=== PATIENT | female | born 1935 | race Caucasian/White ===

== ENCOUNTER 2019-11-19 09:11 | Inpatient (IN) | payer MEDICARE, OTHER ==
--- NOTE | 2019-11-19 09:20 | ER Document Report ---
ED General - General Chief Complaint: Urinary Problem Stated Complaint: POSSIBLE UTI Time Seen by Provider: 11/19/19 09:19 Primary Care Provider: CHIDI SIMENTAL MD [Primary Care Provider] - Follow up as needed - HPI Patient complains to provider of: Weakness and fatigue Notes: 83-year-old female presents with increasing weakness fatigue for the last 2 weeks. Patient was just hospitalized last Tuesday for urinary tract infection. Discharged on . Continues to be profoundly weak and tired. This 83-year-old female normally lives by herself able to take care of activities of daily life. This is no longer possible. Denies any focal neurologic deficit. Intact strength. Symptoms have been going on for 1 week. Denies fever nausea vomiting. Patient denies dysuria frequency or hematuria. No other symptoms besides generalized weakness - Related Data Allergies/Adverse Reactions: acetaminophen [From Percocet] Allergy (Verified 02/26/14 09:42) levofloxacin [From Levaquin] Allergy (Verified 02/26/14 09:42) oxycodone HCl [From Percocet] Allergy (Verified 02/26/14 09:42) Past Medical History - Social History Smoking Status: Unknown if Ever Smoked Family History: Reviewed & Not Pertinent - Past Medical History Cardiac Medical History: Reports: Hx Hypercholesterolemia Past Surgical History: Reports: Hx Cardiac Surgery - aortic valve replacement and double bypass, Hx Orthopedic Surgery - rods in low back, rods in left ankle, Review of Systems - Review of Systems Notes: REVIEW OF SYSTEMS: CONSTITUTIONAL: -fevers, -chills EENT: -eye pain, -difficulty swallowing, -nasal congestion CARDIOVASCULAR: -chest pain, -syncope. RESPIRATORY: -cough, -SOB GASTROINTESTINAL: -abdominal pain, -nausea, -vomiting, -diarrhea GENITOURINARY: -dysuria, -hematuria MUSCULOSKELETAL: -back pain, -neck pain SKIN: -rash or skin lesions. HEMATOLOGIC: -easy bruising or bleeding. LYMPHATIC: -swollen, enlarged glands. NEUROLOGICAL: Weakness PSYCHIATRIC: -anxiety, -depression. ALL OTHER SYSTEMS REVIEWED AND NEGATIVE. Physical Exam - Vital signs Vitals: Temp Pulse Resp BP Pulse Ox 98.0 F 59 L 18 200/71 H 100 11/19/19 09:19 11/19/19 09:19 11/19/19 09:19 11/19/19 09:19 11/19/19 09:19 - Notes Notes: PHYSICAL EXAMINATION: GENERAL: Mild distress. HEAD: Atraumatic, normocephalic. EYES: Pupils equal round and reactive to light, extraocular movements intact, sclera anicteric, conjunctiva are normal. ENT: nares patent, oropharynx clear without exudates. Moist mucous membranes. NECK: Normal range of motion, supple without lymphadenopathy LUNGS: Breath sounds clear to auscultation bilaterally and equal. No wheezes rales or rhonchi. HEART: Regular rate and rhythm without murmurs ABDOMEN: Soft, nontender, normoactive bowel sounds. No guarding, no rebound. No masses appreciated. EXTREMITIES: Normal range of motion, no pitting or edema. No cyanosis. NEUROLOGICAL: Cranial nerves grossly intact. Normal speech, normal gait. Normal sensory and motor exams. PSYCH: Normal mood, normal affect. SKIN: Warm, Dry, normal turgor, no rashes or lesions noted. Course - Re-evaluation Re-evalutation: 11/19/19 09:31 83-year-old female presents with generalized weakness and fatigue. No focal findings on exam constitutional: [PRESENT: as per HPI. ABSENT: chills, fever(s), headache(s), weight gain, weight loss] Eyes: [ABSENT: visual disturbances] Ears: [ABSENT: hearing changes] Cardiovascular: [ABSENT: chest pain, dyspnea on exertion, edema, orthropnea, palpitations] Respiratory: [ABSENT: cough, hemoptysis] Gastrointestinal: [ABSENT: abdominal pain, constipation, diarrhea, hematemesis, hematochezia, nausea, vomiting] Genitourinary: [ABSENT: dysuria, hematuria] Musculoskeletal: [ABSENT: joint swelling] Integumentary: [ABSENT: rash, wounds] Neurological: [ABSENT: abnormal gait, abnormal speech, confusion, dizziness, focal weakness, syncope] Psychiatric: [ABSENT: anxiety, depression, homicidal ideation, suicidal ideation] Endocrine: [ABSENT: cold intolerance, heat intolerance, menstrual abnormalities, polydipsia, polyuria] Hematologic/Lymphatic: [ABSENT: easy bleeding, easy bruising, lymphadenopathy] 11/19/19 10:52 Elderly female presents with vague complaints of generalized weakness and f atigue. Patient found out profound elevated blood pressure which is not normal for this patient. Patient systolic approximately 212. Patient's CAT scan head concerning for possible subacute infarct versus. Emergent order for nitroprusside begin to drop blood pressures within normal limits. Patient shows no signs of herniation on her CAT scan. 11/19/19 12:13 We will proceed slowly with fluid resuscitation given patient's profound elevation in proBNP. Will give IV insulin with fluid. No signs of leukocytosis. Mild lactic acidosis. Patient will be admitted for close monitoring of possible subacute CVA. Or accelerated hypertension. Patient be given oral lisinopril along with having nitroglycerin ointment placed to try to titrate patient off of the nitroprusside drip. - Vital Signs Vital signs: Temp Pulse Resp BP Pulse Ox 98.0 F 59 L 18 131/50 H 97 11/19/19 09:19 11/19/19 09:19 11/19/19 12:01 11/19/19 12:01 11/19/19 12:01 - Laboratory Result Diagrams: 11/19/19 10:00 11/19/19 10:00 Laboratory results interpreted by me: 11/19/19 11/19/19 11/19/19 10:00 10:00 10:00 RDW 16.0 H Sodium 134.6 L Potassium 5.3 H BUN 25 H Est GFR (MDRD) Non-Af 57 L Glucose 357 H Lactic Acid 3.1 H Direct Bilirubin 0.5 H AST 45 H ALT 39 H NT-Pro-B Natriuret Pep Urine Glucose (UA) Ur Leukocyte Esterase Urine Ascorbic Acid 11/19/19 11/19/19 10:00 11:02 RDW Sodium Potassium BUN Est GFR (MDRD) Non-Af Glucose Lactic Acid Direct Bilirubin AST ALT NT-Pro-B Natriuret Pep 3350 H Urine Glucose (UA) >=500 H Ur Leukocyte Esterase TRACE H Urine Ascorbic Acid 20 H Critical Care Note - Critical Care Note Total time excluding time spent on procedures (mins): 32 Discharge - Discharge Clinical Impression: CVA (cerebral vascular accident) Qualifiers: CVA mechanism: unspecified Qualified Code(s): I63.9 - Cerebral infarction, unspecified Condition: Stable Disposition: ADMITTED INPATIENT Admitting Provider: Carolina (Hospitalist) Unit Admitted: IMCU Referrals: CHIDI SIMENTAL MD [Primary Care Provider] - Follow up as needed
[2019-11-19] MEDS ORDERED: NORMAL SALINE 1000 ML 1,000 ML IV ONE (09:28)
[2019-11-19 10:30] LABS: ABSOLUTE EOSINOPHILS # (AUTO) 0.1 10^3/uL (0.0-0.6); ABSOLUTE LYMPHOCYTES (AUTO) 1.1 10^3/uL (0.5-4.7); ABSOLUTE MONOCYTES (AUTO) 0.7 10^3/uL (0.1-1.4); ABSOLUTE NEUT (AUTO) 4.9 10^3/uL (1.7-8.2); BASOPHILS % (AUTO) 0.6 % (0-2); EOSINOPHILS % (AUTO) 0.8 % (0-6); HEMATOCRIT 45.2 % (36.0-47.0); HEMOGLOBIN 15.5 g/dL (12.0-15.5); LYMPHOCYTES % (AUTO) 16.5 % (13-45); MEAN CORPUSCULAR HEMOGLOBIN 30.2 pg (27.0-33.4); MEAN CORPUSCULAR HGB CONC 34.3 g/dL (32.0-36.0); MEAN CORPUSCULAR VOLUME 88 fl (80-97); MONOCYTES % (AUTO) 10.4 % (3-13); PLATELET COUNT 169 10^3/uL (150-450); RED BLOOD COUNT 5.13 10^6/uL (3.72-5.28); SEGMENTED NEUTROPHILS % (AUTO) 71.7 % (42-78); TOTAL CELLS COUNTED % (AUTO) 100 %; WHITE BLOOD COUNT 6.9 10^3/uL (4.0-10.5)
[2019-11-19] MEDS ORDERED: NICARDIPINE HCL RTU, ISO-OS 20 MG/200 ML RTUINJ IV PRN (10:49)
[2019-11-19] MEDS ORDERED: DEXTROSE 5%-WATER 250 ML with NITROPRUSSIDE SODIUM 50 MG IV PRN ×2 (10:52)
[2019-11-19 10:53] LABS: ALBUMIN 3.6 g/dL (3.5-5.0); ALKALINE PHOSPHATASE 118 U/L (38-126); ANION GAP 10 (5-19); ASPARTATE AMINO TRANSFERASE 45 U/L (14-36); BILIRUBIN,DIRECT 0.5 mg/dL (0.0-0.4); BILIRUBIN,TOTAL 0.7 mg/dL (0.2-1.3); BLOOD UREA NITROGEN 25 mg/dL (7-20); CARBON DIOXIDE 24 mmol/L (22-30); CHLORIDE 101 mmol/L (98-107); GLUCOSE 357 mg/dL (75-110); POTASSIUM 5.3 mmol/L (3.6-5.0)
[2019-11-19] MEDS ORDERED: NITROPRUSSIDE SODIUM 2 ML IV ONE (10:57)
[2019-11-19] MEDS ORDERED: INSULIN REG, HUMAN 100 UNIT/ML 3 ML VIAL (PYX) IV ONE (10:58)
--- NOTE | 2019-11-19 11:02 | RADIOLOGY REPORT (SQ) ---
EXAM DESCRIPTION: CT HEAD WITHOUT COMPLETED DATE/TIME: 11/19/2019 10:38 am REASON FOR STUDY: AMS COMPARISON: None. TECHNIQUE: Axial images acquired through the brain without intravenous contrast. Images reviewed wi th bone, brain and subdural windows. Additional sagittal and coronal reconstructions were generated. Images stored on PACS. All CT scanners at this facility use dose modulation, iterative reconstruction, and/or weight based d osing when appropriate to reduce radiation dose to as low as reasonably achievable (ALARA). [facility]: Dose Right [facility]: CareDose [facility]: Dose Right [facility]: Teradose 4D [facility]: Smart LevelEleven RADIATION DOSE: CT Rad equipment meets quality standard of care and radiation dose reduction techniq ues were employed. CTDIvol: 53.2 mGy. DLP: 991 mGy-cm.mGy. LIMITATIONS: None. FINDINGS: VENTRICLES: Prominent. CEREBRUM: Multifocal areas of hypoattenuation throughout both hemispheres some of which demonstrate l oss of bates-white attenuation. For reference there areas involving the bilateral occipital lobes, le ft paramedian frontal lobe and barrera radiata and left basal ganglia. Additional areas of nonspecifi c periventricular hypoattenuation, likely sequelae of microangiopathic disease. No significant mass or mass effect. No evidence of intracranial hemorrhage. CEREBELLUM: No masses. No hemorrhage. No alteration of density. No evidence for acute infarction. EXTRAAXIAL SPACES: Age-related involutional change. No fluid collections. No masses. ORBITS AND GLOBE: No intra- or extraconal masses. Normal contour of globe without masses. Bilateral cataract surgery. CALVARIUM: No fracture. PARANASAL SINUSES: No fluid or mucosal thickening. SOFT TISSUES: No mass or hematoma. OTHER: No other significant finding. IMPRESSION: 1. Multifocal areas of hypoattenuation involving the bilateral occipital lobes and left paramedian frontal lobe compatible with age indeterminate infarcts. No priors available for compari son. Recommend MRI for more definitive characterization of chronicity. 2. Additional nonspecific white matter changes, likely sequelae of microangiopathic disease and pare nchymal atrophy. EVIDENCE OF ACUTE STROKE: Multifocal areas of hypoattenuation compatible with infarct, age indetermin ate. Findings discussed with At 1045 hours on 11/19/2019. TECHNICAL DOCUMENTATION: JOB ID: [id number] Quality ID # [id number]: Final reports with documentation of one or more dose reduction techniques (e.g., Au tomated exposure control, adjustment of the mA and/or kV according to patient size, use of iterative reconstruction technique) 2010 [employer]- All Rights Reserved Reading location - IP/workstation name: [email or web address]
[2019-11-19 11:04] LABS: TROPONIN I 0.197 ng/mL
[2019-11-19 11:49] LABS: APPEARANCE,URINE CLEAR; BILIRUBIN,URINE NEGATIVE (NEGATIVE); COLOR,URINE YELLOW; GLUCOSE, URINE >=500 mg/dL (NEGATIVE); KETONES,URINE NEGATIVE (NEGATIVE); LEUKOCYTE ESTERASE,URINE TRACE (NEGATIVE); NITRITE,URINE NEGATIVE (NEGATIVE); PROTEIN,URINE NEGATIVE (NEGATIVE); UROBILINOGEN,URINE NEGATIVE mg/dL (<2.0)
[2019-11-19] MEDS ORDERED: LISINOPRIL 10 MG TABLET PO ONE (12:12)
[2019-11-19] MEDS ORDERED: NITROGLYCERIN 2% OINTMENT 1 GM PACKET TP ONE (12:13)
[2019-11-19] MEDS ORDERED: ACETAMINOPHEN 325 MG TABLET PO PRN (13:34)
[2019-11-19] MEDS ORDERED: NORMAL SALINE 1000 ML 1,000 ML IV PRN (13:34)
[2019-11-19] MEDS ORDERED: MAG HYDROX/AL HYDROX/SIMETH SUSP 30 ML UDCUP PO PRN (13:34)
[2019-11-19] MEDS ORDERED: DEXTROSE 50%-WATER 25 GM/50 ML DISP.SYRIN IV PRN ×2 (13:44)
[2019-11-19] MEDS ORDERED: GLUCAGON,HUMAN RECOMB 1 MG INJ IM PRN (13:44)
[2019-11-19] MEDS ORDERED: DEXTROSE 40% GEL 15 GM TUBE PO PRN ×2 (13:44)
[2019-11-19] MEDS ORDERED: HYDRALAZINE HCL INJ/PF 20 MG/1 ML SDV IV PRN (13:47)
--- NOTE | 2019-11-19 14:14 | PDOC H&P ---
History of Present Illness Admission Date/PCP: 11/19/19 13:10 CHIDI SIMENTAL MD Patient complains of: Generalized weakness History of Present Illness: ALL MILTON is a 83 year old female with a history of recent urinary tract infection, aortic valve replacement, diabetes mellitus type 2, who presents to the hospital with complaints of continued generalized weakness as well as fatigue. History obtained from patient's daughter and patient. Patient was r ecently treated for urinary tract infection 1 week ago at [facility] after presenting with weakness and "groggy feeling". At that time, she was noted to also have elevated blood pressure with systolic in the 190s. This is unusual for patient who had no prior history of hypertension. She was discharged home 2 days later and completed treatment with oral antibiotics. Jardiance was stopped due to concern that he may precipitate UTI. She was discharged on lisinopril. She went to see her primary care provider due to persistence of weakness now affecting ambulation and was told to come to the hospital for further evaluation. Patient denies any focal weaknesses, dysphagia or any focal wan rological symptoms and states that she would like to go home to take care of her cat. In the ER, head CT revealed findings concerning for stroke and as such she was referred to hospitalist service for admission. Past Medical History Endocrine Medical History: Reports: Diabetes Mellitus Type 2 Past Surgical History Past Surgical History: Reports: Orthopedic Surgery - rods in low back, rods in left ankle,, Other - Bovine aortic valve replacement Social History Information Source: Patient, Relative Lives with: Family Smoking Status: Unknown if Ever Smoked Frequency of Alcohol Use: None Hx Recreational Drug Use: No - Advance Directive Resuscitation Status: Full Code Family History Family History: Hypertension Parental Family History Reviewed: Yes Children Family History Reviewed: NA Sibling(s) Family History Reviewed.: NA Medication/Allergy Allergies/Adverse Reactions: acetaminophen [From Percocet] Allergy (Verified 02/26/14 09:42) levofloxacin [From Levaquin] Allergy (Verified 02/26/14 09:42) oxaprozin [From Daypro] Allergy (Verified 11/19/19 13:57) oxycodone HCl [From Percocet] Allergy (Verified 02/26/14 09:42) Review of Systems Constitutional: PRESENT: fatigue. ABSENT: chills, fever(s) Eyes: ABSENT: visual disturbances Ears: ABSENT: hearing changes Nose, Mouth, and Throat: ABSENT: headache(s) Cardiovascular: ABSENT: chest pain Respiratory: ABSENT: dyspnea Gastrointestinal: ABSENT: abdominal pain, nausea, vomiting Genitourinary: ABSENT: dysuria Integumentary: ABSENT: diaphoresis Neurological: ABSENT: confusion, focal weakness Psychiatric: ABSENT: anxiety Endocrine: ABSENT: cold intolerance Physical Exam Vital Signs: Temp Pulse Resp BP Pulse Ox 98.0 F 59 L 12 197/65 H 100 11/19/19 09:19 11/19/19 09:19 11/19/19 13:28 11/19/19 13:28 11/19/19 13:28 Intake & Output 11/18/19 11/19/19 11/20/19 06:59 06:59 06:59 Intake Total 1006 Balance 1006 Weight 64.9 kg General appearance: PRESENT: no acute distress, cooperative, hard of hearing Head exam: PRESENT: atraumatic, normocephalic Eye exam: PRESENT: EOMI, PERRLA. ABSENT: scleral icterus Mouth exam: PRESENT: neck supple, tongue midline Neck exam: ABSENT: carotid bruit, JVD Respiratory exam: PRESENT: symmetrical, unlabored, wheezes. ABSENT: accessory muscle use, retraction, tachypnea Cardiovascular exam: PRESENT: +S1, +S2. ABSENT: diastolic murmur, irregular rhythm, systolic murmur, tachycardia GI/Abdominal exam: PRESENT: soft. ABSENT: rebound, rigid, tenderness Extremities exam: ABSENT: calf tenderness, pedal edema Neurological exam: PRESENT: alert, awake, oriented to person, oriented to place, oriented to time, ataxia - Mild ataxia on FNF test of left hand., motor sensory deficit - Mild left upper extremity weakness 4/5. Normal strength in all other extremities.. ABSENT: CN II-XII grossly intact - Right facial droop noted. Negative for dysarthria. Other cranial nerves intact, aphasic Psychiatric exam: ABSENT: agitated, anxious Focused psych exam: ABSENT: pressured speech Skin exam: ABSENT: jaundice Results Laboratory Results: 11/19/19 10:00 11/19/19 10:00 11/19/19 11/19/19 11/19/19 10:00 10:00 10:00 WBC 6.9 RBC 5.13 Hgb 15.5 Hct 45.2 MCV 88 MCH 30.2 MCHC 34.3 RDW 16.0 H Plt Count 169 Seg Neutrophils % 71.7 Sodium 134.6 L Potassium 5.3 H Chloride 101 Carbon Dioxide 24 Anion Gap 10 BUN 25 H Creatinine 0.94 Est GFR ( Amer) > 60 Glucose 357 H Lactic Acid 3.1 H Calcium 9.0 Total Bilirubin 0.7 AST 45 H Alkaline Phosphatase 118 Total Protein 7.0 Albumin 3.6 Urine Color Urine Appearance Urine pH Ur Specific Burns Urine Protein Urine Glucose (UA) Urine Ketones Urine Blood Urine Nitrite Ur Leukocyte Esterase Urine WBC (Auto) Urine RBC (Auto) 11/19/19 11:02 WBC RBC Hgb Hct MCV MCH MCHC RDW Plt Count Seg Neutrophils % Sodium Potassium Chloride Carbon Dioxide Anion Gap BUN Creatinine Est GFR ( Amer) Glucose Lactic Acid Calcium Total Bilirubin AST Alkaline Phosphatase Total Protein Albumin Urine Color YELLOW Urine Appearance CLEAR Urine pH 5.0 Ur Specific Burns 1.020 Urine Protein NEGATIVE Urine Glucose (UA) >=500 H Urine Ketones NEGATIVE Urine Blood NEGATIVE Urine Nitrite NEGATIVE Ur Leukocyte Esterase TRACE H Urine WBC (Auto) 3 Urine RBC (Auto) 2 11/19/19 10:00 Troponin I 0.197 NT-Pro-B Natriuret Pep 3350 H Impressions: Head CT 11/19/19 09:29 IMPRESSION: 1. Multifocal areas of hypoattenuation involving the bilateral occipital lobes and left paramedian frontal lobe compatible with age indeterminate infarcts. No priors available for comparison. Recommend MRI for more definitive characterization of chronicity. 2. Additional nonspecific white matter changes, likely sequelae of microangiopathic disease and parenchymal atrophy. EVIDENCE OF ACUTE STROKE: Multifocal areas of hypoattenuation compatible with infarct, age indeterminate. Findings discussed with At 1045 hours on 11/19/2019. Assessment and Plan - Diagnosis (1) CVA (cerebral vascular accident) Qualifiers: CVA mechanism: unspecified Qualified Code(s): I63.9 - Cerebral infarction, unspecified Is this a current diagnosis for this admission?: Yes Plan: I suspect that the findings of stroke on head CT are likely subacute or chronic and not acute Patient does seem to have right facial droop, left arm weakness We will check MRI-we will need to check ankle x-rays first as patient's daughter suspects that she has screws in 1 of her ankleS Check lipid panel every 4 neurochecks Empirically start aspirin and atorvastatin Carotid ultrasound and echo (2) Type 2 diabetes mellitus with hyperglycemia Qualifiers: Diabetes mellitus long term care social worker insulin use: with long term care social worker use Qualified Code(s): E11.65 - Type 2 diabetes mellitus with hyperglycemia; Z79.4 - long term (current) use of insulin Is this a current diagnosis for this admission?: Yes Plan: Resume patient's home regimen of 70/30 insulin 20 units in a.m. and 10 units in p.m. We will give a dose of NPH 10 units now Sliding scale insulin. Check hemoglobin A1c. (3) Hypertensive urgency Is this a current diagnosis for this admission?: Yes Plan: Recently started on lisinopril but has hyperkalemia today and as such I will hold lisinopril. Instead I will place her on chlorthalidone and amlodipine and IV hydralazine as needed. (4) Weakness Is this a current diagnosis for this admission?: Yes Plan: Physical and Occupational Therapy (5) Lactic acidosis Is this a current diagnosis for this admission?: Yes Plan: Received a fluid bolus. Recheck labs. (6) Wheezing Is this a current diagnosis for this admission?: Yes Plan: Noted to be wheezing today. Denies history of COPD. Will give nebulizers. Outpatient PFTs. (7) Elevated troponin Is this a current diagnosis for this admission?: Yes Plan: EKG showing left bundle branch block. However I do not know if this is a new or an old finding as no prior EKGs for comparison. I will check another troponin level now and if elevated will consult cardiology. At this time, patient denies any symptoms of chest pain or shortness of breath. - Time Time Spent with patient: 35 or more minutes
--- NOTE | 2019-11-19 15:01 | RADIOLOGY REPORT (SQ) ---
EXAM DESCRIPTION: ANKLE BILATERAL AP/LAT COMPLETED DATE/TIME: 11/19/2019 2:08 pm REASON FOR STUDY: needs mri brain. ? hx of screws in ankle COMPARISON: None. NUMBER OF VIEWS: Two views. TECHNIQUE: AP and lateral radiographic images acquired of the right hand left ankle. LIMITATIONS: None. FINDINGS: RIGHT: MINERALIZATION: Decreased. BONES: No acute fracture dislocation. Chronic appearing distal fibular fracture. Degenerative cartagena es about the inferior medial and lateral malleoli. Small superior and plantar calcaneal enthesophyte s. Midfoot osteophytosis. JOINTS: No effusions. SOFT TISSUES: Vascular calcifications. OTHER: No other significant finding. LEFT: MINERALIZATION: Decreased. BONES: No acute fracture or dislocation. Cancellous screw fixation at the distal fibula. Degenerati ve changes at the inferior medial and lateral malleoli. Midfoot degenerative change. Plantar and sumner perior calcaneal enthesophytes. JOINTS: No effusions. SOFT TISSUES: Vascular calcifications. OTHER: No other significant finding. IMPRESSION: 1. No evidence of acute bony abnormality of either ankle. 2. Moderate bilateral degenerative changes and postsurgical/traumatic changes as above. 2 cancellou s screws within the left distal fibula. TECHNICAL DOCUMENTATION: JOB ID: [id number] 2010 [employer]- All Rights Reserved Reading location - IP/workstation name: [email or web address]
[2019-11-19] MEDS ORDERED: AMLODIPINE BESYLATE 10 MG TABLET PO ONE (16:30)
[2019-11-19] MEDS: IPRATROPIUM/ALBUTEROL 0.5-2.5 MG/3 ML AMPUL NEB SCH ×2 (17:13→21:12)
[2019-11-19] MEDS: HUM INSULIN NPH/REG INSULIN HM 100 UNIT/1 ML 3 ML SUBCUT SCH (17:31)
[2019-11-19] MEDS: INSULIN LISPRO 100 UNIT/ML 3 ML VIAL SUBCUT SCH ×2 (17:31→22:06)
[2019-11-19] MEDS: CHLORTHALIDONE 25 MG TABLET PO SCH (17:31)
--- NOTE | 2019-11-19 17:56 | RADIOLOGY REPORT (SQ) ---
EXAM DESCRIPTION: MRI HEAD WITHOUT COMPLETED DATE/TIME: 11/19/2019 3:22 pm REASON FOR STUDY: CVA COMPARISON: 11/19/2019 TECHNIQUE: Multiplanar imaging includes non-contrasted T1, T2, FLAIR, and diffusion with ADC map seq uences. Images stored on PACS. LIMITATIONS: None. FINDINGS: ANATOMY: No anomalies. Normal vascular flow voids. Pituitary fossa normal. CSF SPACES: Normal in size and contour. No hemorrhage. CEREBRUM: Deep periventricular FLAIR/ T2 hyperintensities. Consistent with small vessel disease. Co nfluent abnormal signal throughout the right occipital lobe, to a lesser extent left occipital lobe. See diffusion imaging. No parenchymal hemorrhage or hydrocephalus. POSTERIOR FOSSA: No signal alteration. No hemorrhage. No edema, masses or mass effect. Internal shanda tory canals, cerebello-pontine angles, mastoids normal. DIFFUSION IMAGING: Mildly abnormal diffusion. Subcortical areas of restricted diffusion in the right occipital lobe consistent with recent CVA. This is punctate, discontinuous and without large conflu ent territorial infarct otherwise noted. ORBITS: No masses. Globes normal. PARANASAL SINUSES: No fluid levels. Mucosa normal. OTHER: No other significant finding. IMPRESSION: 1. Recent right occipital lobe infarcts. See description above. 2. Otherwise, small vessel disease and atrophy. Call report tasked to the [facility] CORE team at the time of interpretation. EVIDENCE OF ACUTE STROKE: NO. TECHNICAL DOCUMENTATION: JOB ID: [id number] 2010 [employer]- All Rights Reserved Reading location - IP/workstation name: [email or web address]
[2019-11-19] MEDS ORDERED: AMLODIPINE BESYLATE 5 MG TABLET PO SCH (18:00)
[2019-11-19] MEDS ORDERED: GLIMEPIRIDE 4 MG TABLET PO ONE (20:30)
[2019-11-19] MEDS ORDERED: CARVEDILOL 6.25 MG TABLET PO SCH (22:00)
[2019-11-19] MEDS: ATORVASTATIN CALCIUM 40 MG TABLET PO SCH (22:06)
[2019-11-19] MEDS: DONEPEZIL HCL 5 MG TABLET PO SCH (22:06)
--- NOTE | 2019-11-19 23:37 | XCELERA REPORT ---
[address] [address] Transthoracic Echocardiogram Report Name: ALL MILTON Age: 83 yrs Gender: Female : 1935 Patient Status: Inpatient Patient Location: [facility]^A Study Date: 11/19/2019 08:05 PM Height: 62 in Weight: 143 lb BSA: 1.7 m2 Procedure: A complete two-dimensional transthoracic echocardiogram was performed (2D, M-mode, spectral and color flow Doppler). The study was technically adequate with some images being suboptimal in quality. Reason For Study: stroke work up Ordering Physician: JEFF SHEIKH Performed By: Rosalina Martinez Interpretation Summary Left ventricular systolic function is low normal. The left ventricle is grossly normal size. There is moderate concentric left ventricular hypertrophy. The left ventricular cavity is small. Doppler measurements suggest pseudonormalized left ventricular relaxation, which is associated with grade II/IV or mild to moderate diastolic dysfunction Regional wall motion abnormalities cannot be excluded due to limited visualization. The right ventricular systolic function is normal. The left atrium is mildly dilated. The right atrium is normal. There is a trace to mild amount of mitral regurgitation There is mild mitral stenosis MV has aapperance of previous ring repair The aortic valve is moderately calcified There is mild aortic stenosis There is a peak gradient of 15-20 mm of Hg. There is a trace amount of aortic regurgitation There is a trace or physiologic amount of tricuspid regurgitation Tricuspid regurgitation jet envelope not well defined to measure RV systolic pressure accurately. Minimal pericardial effusion. Consider NIKOLAS if clinically indicated. MMode/2D Measurements & Calculations RVDd: 3.0 cm LVIDd: 4.2 cm FS: 39.8 % Ao root diam: 2.5 cm IVSd: 1.4 cm LVIDs: 2.6 cm EDV(Teich): 80.7 ml Ao root area: 4.9 cm2 LVPWd: 1.3 cm ESV(Teich): 23.6 ml LA dimension: 4.2 cm EF(Teich): 70.8 % LVOT diam: 1.8 cm LVOT area: 2.5 cm2 Doppler Measurements & Calculations MV E max redd: MV P1/2t max redd: Ao V2 max: LV V1 max P.2 cm/sec 117.1 cm/sec 203.0 cm/sec 3.4 mmHg MV A max redd: MV P1/2t: 107.7 msec Ao max PG: LV V1 mean P.0 cm/sec MVA(P1/2t): 2.0 cm2 16.5 mmHg 1.3 mmHg MV E/A: 0.71 MV dec slope: Ao V2 mean: LV V1 max: 119.4 cm/sec 92.1 cm/sec 318.4 cm/sec2 Ao mean PG: LV V1 mean: MV dec time: 0.39 sec 7.6 mmHg 51.3 cm/sec Ao V2 VTI: 39.9 cm LV V1 VTI: RONDA(I,D): 1.3 cm2 20.0 cm RONDA(V,D): 1.2 cm2 SV(LVOT): 50.9 ml PA V2 max: MV P1/2t-pr_phl: 113.5 cm/sec 107.7 msec PA max P.2 mmHg Left Ventricle The left ventricle is grossly normal size. There is moderate concentric left ventricular hypertrophy. The left ventricular cavity is small. Left ventricular systolic function is low normal. Doppler measurements suggest pseudonormalized left ventricular relaxation, which is associated with grade II/IV or mild to moderate diastolic dysfunction. Regional wall motion abnormalities cannot be excluded due to limited visualization. Right Ventricle The right ventricle is grossly normal size. There is normal right ventricular wall thickness. The right ventricular systolic function is normal. Atria The right atrium is normal. The left atrium is mildly dilated. Interarterial septum not well visualized and not well dopplered. Cannot comment on ASD/PFO presence. Mitral Valve MV has aapperance of previous ring repair. There is mild mitral stenosis. There is a trace to mild amount of mitral regurgitation. Aortic Valve The aortic valve is moderately calcified. The aortic valve is not well visualized secondary to technical limitations. There is mild aortic stenosis. There is a peak gradient of 15-20 mm of Hg. There is a trace amount of aortic regurgitation. Tricuspid Valve The tricuspid valve is not well visualized secondary to technical limitations. There is no tricuspid stenosis. There is a trace or physiologic amount of tricuspid regurgitation. Tricuspid regurgitation jet envelope not well defined to measure RV systolic pressure accurately. Pulmonic Valve The pulmonic valve is not well visualized. Great Vessels The aortic root is not well visualized but is probably normal size. The inferior vena cava was not well visualized. Effusions Minimal pericardial effusion. Incidental Findings Consider NIKOLAS if clinically indicated. : JEFF SHEIKH Shyamal
[2019-11-20] MEDS: IPRATROPIUM/ALBUTEROL 0.5-2.5 MG/3 ML AMPUL NEB SCH ×4 (02:15→20:17)
[2019-11-20 05:32] LABS: ANION GAP 6 (5-19); BLOOD UREA NITROGEN 15 mg/dL (7-20); CALCIUM 8.6 mg/dL (8.4-10.2); CARBON DIOXIDE 25 mmol/L (22-30); CHLORIDE 102 mmol/L (98-107); CREATINE KINASE 34 U/L (30-135); GLUCOSE 155 mg/dL (75-110); PHOSPHORUS 2.5 mg/dL (2.5-4.5); POTASSIUM 4.6 mmol/L (3.6-5.0); TRIGLYCERIDES 184 mg/dL (<150)
[2019-11-20 05:43] LABS: DIRECT LDL 78 mg/dL (<100)
[2019-11-20 05:54] LABS: VLDL CHOLESTEROL 36.8 mg/dL (10-31)
[2019-11-20] MEDS: INSULIN LISPRO 100 UNIT/ML 3 ML VIAL SUBCUT SCH ×4 (09:13→23:09)
[2019-11-20] MEDS: HUM INSULIN NPH/REG INSULIN HM 100 UNIT/1 ML 3 ML SUBCUT SCH ×2 (09:13→16:51)
[2019-11-20] MEDS: GLIMEPIRIDE 4 MG TABLET PO SCH (09:13)
[2019-11-20] MEDS: ENOXAPARIN SODIUM INJ 40 MG/0.4 ML DISP.SYRIN SUBCUT SCH (09:14)
[2019-11-20] MEDS: ASPIRIN 81 MG TABLET, ENT COATED PO SCH (09:14)
[2019-11-20] MEDS: CHLORTHALIDONE 25 MG TABLET PO SCH (09:14)
[2019-11-20] MEDS: AMLODIPINE BESYLATE 10 MG TABLET PO SCH (09:14)
--- NOTE | 2019-11-20 09:51 | RADIOLOGY REPORT (SQ) ---
EXAM DESCRIPTION: CAROTID DOPPLER COMPLETED DATE/TIME: 11/19/2019 9:29 pm REASON FOR STUDY: CVA COMPARISON: CT brain 11/19/2019 MRI brain 11/19/2019 TECHNIQUE: Grayscale ultrasound, Doppler velocity and spectra, and color Doppler images acquired of the extra-cranial carotid and vertebral arteries. Images stored on PACS. LIMITATIONS: None. FINDINGS: RIGHT CAROTID CCA Velocities: Within normal limits. Peak systolic velocity 0.9 m/sec ICA Velocities Peak systolic 1.1 m/s. End diastolic 0.18 m/s. Proximal ICA/CCA peak systolic ratio 1.1. Spectra normal. No significant plaque. LEFT CAROTID CCA Velocities: Within normal limits. Peak systolic velocity 0.9 m/sec ICA Velocities Peak systolic 1.4 m/s. End diastolic 0.18 m/s. Proximal ICA/CCA peak systolic ratio 1.5. Dense calcific plaque is present at the left carotid bifurcation shadowing the origin of the left ICA . Immediately distal to the shadowing plaque, velocities suggest 50 to 69% diameter narrowing based on systolic velocity 1.4 m/sec. VERTEBRAL ARTERIES: Antegrade flow. Normal waveforms. SUBCLAVIAN ARTERIES: Not evaluated OTHER: No other significant finding. IMPRESSION: No flow significant stenosis right carotid bifurcation. 50 to 69% diameter narrowing left proximal ICA COMMENT: Quality ID #[id number]: Velocity criteria are extrapolated from the diameter data as defined by t he Society of Radiologists in Ultrasound Consensus Conference. Radiology 2003: 229; 340-346. TECHNICAL DOCUMENTATION: JOB ID: [id number] 2010 [employer]- All Rights Reserved Reading location - IP/workstation name: [email or web address]
[2019-11-20] MEDS ORDERED: AMLODIPINE BESYLATE 5 MG TABLET PO SCH ×2 (10:00→18:00)
--- NOTE | 2019-11-20 11:38 | EKG REPORT ---
SEVERITY:- ABNORMAL ECG - SINUS RHYTHM PROBABLE LEFT ATRIAL ABNORMALITY LEFT BUNDLE BRANCH BLOCK : Confirmed by: Dwight Liang 20-Nov-2019 11:37:18
--- NOTE | 2019-11-20 12:34 | PDOC PROGRESS REPORT ---
Subjective Progress Note for:: 11/20/19 Subjective:: Patient feels well today. Had some coughing this morning and some nausea but was later able to tolerate food. Discussed results of MRI with patient and her daughter. Daughter would like for patient to go to rehabilitation at SNF. Reason For Visit: CVA,WEAKNESS Physical Exam Vital Signs: Temp Pulse Resp BP Pulse Ox 98.1 F 60 18 167/51 H 99 11/20/19 11:02 11/20/19 11:02 11/20/19 11:02 11/20/19 11:02 11/20/19 11:02 Intake & Output 11/19/19 11/20/19 11/21/19 06:59 06:59 06:59 Intake Total 1221 Output Total 200 Balance 1021 Weight 69.7 kg General appearance: PRESENT: no acute distress, cooperative Neck exam: ABSENT: JVD Respiratory exam: PRESENT: clear to auscultation livier, unlabored. ABSENT: tachypnea, wheezes Cardiovascular exam: PRESENT: RRR, +S1, +S2. ABSENT: tachycardia GI/Abdominal exam: PRESENT: soft. ABSENT: rebound, rigid, tenderness Neurological exam: PRESENT: alert, awake, oriented to person, oriented to place, oriented to time Results Laboratory Results: 11/19/19 10:00 11/20/19 04:43 11/19/19 11/20/19 13:27 04:43 Sodium 132.5 L Potassium 4.6 Chloride 102 Carbon Dioxide 25 Anion Gap 6 BUN 15 Creatinine 0.88 Est GFR ( Amer) > 60 Glucose 155 H Lactic Acid 2.1 Calcium 8.6 Phosphorus 2.5 Magnesium 2.0 Triglycerides 184 H Cholesterol 135.10 LDL Cholesterol Direct 78 VLDL Cholesterol 36.8 H HDL Cholesterol 32 L 11/19/19 11/19/19 11/20/19 10:00 16:00 04:43 Creatine Kinase 34 Troponin I 0.197 0.164 NT-Pro-B Natriuret Pep 3350 H Impressions: Ankle X-Ray 11/19/19 00:00 IMPRESSION: 1. No evidence of acute bony abnormality of either ankle. 2. Moderate bilateral degenerative changes and postsurgical/traumatic changes as above. 2 cancellous screws within the left distal fibula. Carotid Doppler Study 11/19/19 00:00 IMPRESSION: No flow significant stenosis right carotid bifurcation. 50 to 69% diameter narrowing left proximal ICA Head MRI 11/19/19 00:00 IMPRESSION: 1. Recent right occipital lobe infarcts. See description above. 2. Otherwise, small vessel disease and atrophy. Call report tasked to the [facility] team at the time of interpretation. EVIDENCE OF ACUTE STROKE: NO. Head CT 11/19/19 09:29 IMPRESSION: 1. Multifocal areas of hypoattenuation involving the bilateral occipital lobes and left paramedian frontal lobe compatible with age indeterminate infarcts. No priors available for comparison. Recommend MRI for more definitive characterization of chronicity. 2. Additional nonspecific white matter changes, likely sequelae of microangiopathic disease and parenchymal atrophy. EVIDENCE OF ACUTE STROKE: Multifocal areas of hypoattenuation compatible with infarct, age indeterminate. Findings discussed with At 1045 hours on 11/19/2019. Assessment and Plan - Diagnosis (1) CVA (cerebral vascular accident) Qualifiers: CVA mechanism: unspecified Qualified Code(s): I63.9 - Cerebral infarction, unspecified Is this a current diagnosis for this admission?: Yes Plan: Subacute CVA confirmed on MRI involving right occipital lobe Patient does seem to have right facial droop, left arm weakness Echo shows no cardioembolic source though it shows mild left atrial dilation. Telemetry review shows no evidence of A. fib Carotid ultrasound normal right carotid but 50 to 69% narrowing of the left which does not qualify for intervention Physical therapy, plan for SNF for rehab. Aspirin, statin (2) Type 2 diabetes mellitus with hyperglycemia Qualifiers: Diabetes mellitus alf insulin use: with superintendent terminal use Qualified Code(s): E11.65 - Type 2 diabetes mellitus with hyperglycemia; Z79.4 - vermin exterminator (current) use of insulin Is this a current diagnosis for this admission?: Yes Plan: Continue patient's home regimen of 70/30 insulin 20 units in a.m. and 10 units in p.m. Hemoglobin A1c of 9. For patient's age adequate goal is 8.5 or less Sliding scale insulin. Resume glimepiride. Also restart Januvia which patient used to take before. (3) Hypertensive urgency Is this a current diagnosis for this admission?: Yes Plan: Amlodipine and chlorthalidone for blood pressure control. We will hold off on lisinopril due to hyperkalemia on presentation. (4) Weakness Is this a current diagnosis for this admission?: Yes (5) Lactic acidosis Is this a current diagnosis for this admission?: Yes Plan: Resolved (6) Wheezing Is this a current diagnosis for this admission?: Yes Plan: Noted to be wheezing on admission but resolved now. Denies history of COPD. Continue nebulizers. Outpatient PFTs. (7) Elevated troponin Is this a current diagnosis for this admission?: Yes Plan: EKG showing left bundle branch block which is likely chronic old finding and troponin trend was flat. No acs evident. - Time Time Spent with patient: 15-24 minutes
[2019-11-20] MEDS ORDERED: SITAGLIPTIN PHOSPHATE 25 MG TABLET PO ONE (13:00)
[2019-11-20] MEDS ORDERED: INSULIN NPH (ISOPHANE), HUMAN 100 UNIT/ML 3 ML SUBCUT ONE (14:30)
[2019-11-20] MEDS: DONEPEZIL HCL 5 MG TABLET PO SCH (23:11)
[2019-11-20] MEDS: ATORVASTATIN CALCIUM 40 MG TABLET PO SCH (23:11)
[2019-11-21] MEDS: IPRATROPIUM/ALBUTEROL 0.5-2.5 MG/3 ML AMPUL NEB SCH ×4 (02:17→20:30)
[2019-11-21] MEDS: SITAGLIPTIN PHOSPHATE 25 MG TABLET PO SCH (09:16)
[2019-11-21] MEDS: INSULIN LISPRO 100 UNIT/ML 3 ML VIAL SUBCUT SCH ×4 (09:16→21:17)
[2019-11-21] MEDS: ASPIRIN 81 MG TABLET, ENT COATED PO SCH (09:16)
[2019-11-21] MEDS: AMLODIPINE BESYLATE 10 MG TABLET PO SCH (09:16)
[2019-11-21] MEDS: ENOXAPARIN SODIUM INJ 40 MG/0.4 ML DISP.SYRIN SUBCUT SCH (09:17)
[2019-11-21] MEDS: GLIMEPIRIDE 4 MG TABLET PO SCH (09:17)
[2019-11-21] MEDS: HUM INSULIN NPH/REG INSULIN HM 100 UNIT/1 ML 3 ML SUBCUT SCH ×2 (09:17→17:10)
[2019-11-21] MEDS: CHLORTHALIDONE 25 MG TABLET PO SCH (09:18)
--- NOTE | 2019-11-21 11:39 | PDOC PROGRESS REPORT ---
Subjective Progress Note for:: 11/21/19 Subjective:: Patient feels well today. Willing to go to rehabilitation. Has no complaints at this time but still having some cough. Reason For Visit: CVA,WEAKNESS Physical Exam Vital Signs: Temp Pulse Resp BP Pulse Ox 98.2 F 71 16 170/63 H 95 11/21/19 07:42 11/21/19 09:14 11/21/19 09:14 11/21/19 07:42 11/21/19 09:14 Intake & Output 11/20/19 11/21/19 11/22/19 06:59 06:59 06:59 Intake Total 1221 380 Output Total 200 525 Balance 1021 -145 Weight 69.7 kg 69.4 kg General appearance: PRESENT: no acute distress, cooperative Neck exam: ABSENT: JVD Respiratory exam: PRESENT: clear to auscultation livier, unlabored. ABSENT: tachypnea, wheezes Cardiovascular exam: PRESENT: RRR, +S1, +S2. ABSENT: tachycardia GI/Abdominal exam: PRESENT: soft. ABSENT: rebound, rigid, tenderness Neurological exam: PRESENT: alert, awake Results Laboratory Results: 11/19/19 10:00 11/20/19 04:43 11/19/19 11/19/19 11/20/19 10:00 16:00 04:43 Creatine Kinase 34 Troponin I 0.197 0.164 NT-Pro-B Natriuret Pep 3350 H Impressions: Ankle X-Ray 11/19/19 00:00 IMPRESSION: 1. No evidence of acute bony abnormality of either ankle. 2. Moderate bilateral degenerative changes and postsurgical/traumatic changes as above. 2 cancellous screws within the left distal fibula. Carotid Doppler Study 11/19/19 00:00 IMPRESSION: No flow significant stenosis right carotid bifurcation. 50 to 69% diameter narrowing left proximal ICA Head MRI 11/19/19 00:00 IMPRESSION: 1. Recent right occipital lobe infarcts. See description above. 2. Otherwise, small vessel disease and atrophy. Call report tasked to the [facility] team at the time of interpretation. EVIDENCE OF ACUTE STROKE: NO. Head CT 11/19/19 09:29 IMPRESSION: 1. Multifocal areas of hypoattenuation involving the bilateral occipital lobes and left paramedian frontal lobe compatible with age indeterminate infarcts. No priors available for comparison. Recommend MRI for more definitive characterization of chronicity. 2. Additional nonspecific white matter changes, likely sequelae of microangiopathic disease and parenchymal atrophy. EVIDENCE OF ACUTE STROKE: Multifocal areas of hypoattenuation compatible with infarct, age indeterminate. Findings discussed with At 1045 hours on 11/19/2019. Assessment and Plan - Diagnosis (1) CVA (cerebral vascular accident) Qualifiers: CVA mechanism: unspecified Qualified Code(s): I63.9 - Cerebral infarction, unspecified Is this a current diagnosis for this admission?: Yes Plan: Subacute CVA confirmed on MRI involving right occipital lobe Patient does seem to have right facial droop, left arm weakness Echo shows no cardioembolic source though it shows mild left atrial dilation. Telemetry review shows no evidence of A. fib Carotid ultrasound normal right carotid but 50 to 69% narrowing of the left which does not qualify for intervention Physical therapy, plan for SNF for rehab. Aspirin, statin (2) Type 2 diabetes mellitus with hyperglycemia Qualifiers: Diabetes mellitus fdc insulin use: with medical terminologist use Qualified Code(s): E11.65 - Type 2 diabetes mellitus with hyperglycemia; Z79.4 - assisted (current) use of insulin Is this a current diagnosis for this admission?: Yes Plan: Continue patient's home regimen of 70/30 insulin 20 units in a.m. and 10 units in p.m. Hemoglobin A1c of 9. For patient's age adequate goal is 8.5 or less Sliding scale insulin. Continue glimepiride and Januvia. Adequate blood sugar control today. (3) Hypertensive urgency Is this a current diagnosis for this admission?: Yes Plan: Hypertensive urgency has resolved but blood pressure still poorly controlled. Continue patient's Coreg. Continue amlodipine and chlorthalidone which was started during this hospitalization Add small dose of hydralazine 10 mg every 8 hours. (4) Weakness Is this a current diagnosis for this admission?: Yes Plan: Physical and Occupational Therapy (5) Lactic acidosis Is this a current diagnosis for this admission?: Yes (6) Wheezing Is this a current diagnosis for this admission?: Yes Plan: Noted to be wheezing on admission but resolved now. Possibly secondary to reactive bronchospasms from acute bronchitis. Denies history of COPD. Continue nebulizers and supportive care. Can consider outpatient PFTs. (7) Elevated troponin Is this a current diagnosis for this admission?: Yes Plan: EKG showing left bundle branch block which is likely chronic old finding and t roponin trend was flat. No acs evident. - Time Time Spent with patient: Less than 15 minutes
[2019-11-21] MEDS: HYDRALAZINE HCL 10 MG TABLET PO SCH ×2 (16:39→21:17)
[2019-11-21] MEDS ORDERED: ISOSORBIDE MONONITRATE 30 MG TAB.ER.24H PO SCH (18:00)
[2019-11-21 19:09] VITALS: BP 152/54
[2019-11-21] MEDS: DONEPEZIL HCL 5 MG TABLET PO SCH (21:17)
[2019-11-21] MEDS: ATORVASTATIN CALCIUM 40 MG TABLET PO SCH (21:17)
[2019-11-22] MEDS: IPRATROPIUM/ALBUTEROL 0.5-2.5 MG/3 ML AMPUL NEB SCH ×3 (02:21→14:53)
[2019-11-22] MEDS: HYDRALAZINE HCL 10 MG TABLET PO SCH (05:22)
[2019-11-22] MEDS: GLIMEPIRIDE 4 MG TABLET PO SCH (08:15)
[2019-11-22] MEDS: HUM INSULIN NPH/REG INSULIN HM 100 UNIT/1 ML 3 ML SUBCUT SCH (08:15)
[2019-11-22] MEDS: INSULIN LISPRO 100 UNIT/ML 3 ML VIAL SUBCUT SCH ×2 (08:16→12:11)
[2019-11-22] MEDS: AMLODIPINE BESYLATE 10 MG TABLET PO SCH (09:09)
[2019-11-22] MEDS: CHLORTHALIDONE 25 MG TABLET PO SCH (09:09)
[2019-11-22] MEDS: SITAGLIPTIN PHOSPHATE 25 MG TABLET PO SCH (09:09)
[2019-11-22] MEDS: ASPIRIN 81 MG TABLET, ENT COATED PO SCH (09:09)
[2019-11-22] MEDS: ENOXAPARIN SODIUM INJ 40 MG/0.4 ML DISP.SYRIN SUBCUT SCH (09:10)
--- NOTE | 2019-11-22 12:00 | PDOC TRANSFER SUMMARY ---
Impression - Admit/DC Date/PCP Admission Date/Primary Care Provider: 11/19/19 13:10 CHIDI SIMENTAL MD Discharge Date: 11/22/19 - Discharge Diagnosis (1) CVA (cerebral vascular accident) Is this a current diagnosis for this admission?: Yes (2) Type 2 diabetes mellitus with hyperglycemia Is this a current diagnosis for this admission?: Yes (3) Hypertensive urgency Is this a current diagnosis for this admission?: Yes (4) Weakness Is this a current diagnosis for this admission?: Yes (5) Lactic acidosis Is this a current diagnosis for this admission?: Yes (6) Wheezing Is this a current diagnosis for this admission?: Yes (7) Elevated troponin Is this a current diagnosis for this admission?: Yes - Additional Information Resuscitation Status: Full Code Referrals: CHIDI SIMENTAL MD [Primary Care Provider] - Follow up as needed Home Medications: Carvedilol [Coreg 6.25 mg Tablet] 6.25 mg PO Q12 11/19/19 Donepezil HCl 10 mg PO QHS 11/19/19 Empagliflozin [Jardiance] 10 mg PO DAILY 11/19/19 Glimepiride [Amaryl 4 mg Tablet] 4 mg PO QAM 11/19/19 Insulin Aspart Prot/Insuln Asp [Novolog Mix 70-30 Flexpen] 10 - 15 units SUBCUT WSUPPER 11/19/19 Insulin Aspart Prot/Insuln Asp [Novolog Mix 70-30 Flexpen] 20 units SUBCUT WBRKFST 11/19/19 Amlodipine Besylate [Norvasc 10 mg Tablet] 10 mg PO DAILY tablet 11/22/19 Aspirin [Ecotrin 81 mg EC Tablet] 81 mg PO DAILY tabec 11/22/19 Atorvastatin Calcium [Lipitor 40 mg Tablet] 40 mg PO QHS tablet 11/22/19 Chlorthalidone [Hygroton 25 mg Tablet] 25 mg PO DAILY tablet 11/22/19 Sitagliptin Phosphate [Januvia 25 mg Tablet] 25 mg PO DAILY tablet 11/22/19 History of Present Illiness History of Present Illness: ALL MILTON is a 83 year old female with a history of recent urinary tract infection, aortic valve replacement, diabetes mellitus type 2, who presents to the hospital with complaints of continued generalized weakness as well as fatigue. History obtained from patient's daughter and patient. Patient was recently treated for urinary tract infection 1 week ago at [facility] after presenting with weakness and "groggy feeling". At that time, she was noted to also have elevated blood pressure with systolic in the 190s. This is unusual for patient who had no prior history of hypertension. She was discharged home 2 days later and completed treatment with oral antibiotics. Jardiance was stopped due to concern that he may precipitate UTI. She was discharged on lisinopril. She went to see her primary care provider due to persistence of weakness now affecting ambulation and was told to come to the hospital for further evaluation. Patient denies any focal weaknesses, dysphagia or any focal neurological symptoms and states that she would like to go home to take care of her cat. In the ER, head CT revealed findings concerning for stroke and as such she was referred to hospitalist service for admission. Hospital Course Hospital Course: (1) CVA (cerebral vascular accident) Subacute CVA confirmed on MRI involving right occipital lobe Patient does seem to have right facial droop, left arm weakness Echo shows no cardioembolic source though it shows mild left atrial dilation. Telemetry review shows no evidence of A. fib Carotid ultrasound normal right carotid but 50 to 69% narrowing of the left which does not qualify for intervention Physical therapy, plan for SNF for rehab. Aspirin, statin (2) Type 2 diabetes mellitus with hyperglycemia Continue patient's home regimen of 70/30 insulin 20 units in a.m. and 10 units in p.m. Hemoglobin A1c of 9. For patient's age adequate goal is 8.5 or less Sliding scale insulin. Continue glimepiride and Januvia. Adequate blood sugar control today. (3) Hypertensive urgency Hypertensive urgency has resolved but blood pressure still mildly elevated. Continue patient's Coreg. Continue amlodipine and chlorthalidone which was started during this hospitalization -we will allow some days for this new regimen to kick into full effect. If BP stays elevated, can add small dose of hydralazine 10 mg every 8 hours. Goal bp below 150/90. (4) Weakness Physical and Occupational Therapy (5) Lactic acidosis - mild, resolved (6) Wheezing Is this a current diagnosis for this admission?: Yes Plan: Noted to be wheezing on admission but resolved after receiving 1 day of bronchodilator treatments and has remained resolved. Possibly secondary to reactive bronchospasms from acute bronchitis. Denies history of COPD. Continue nebulizers if needed and supportive care for cough. Can consider outpatient PFTs. (7) Elevated troponin Is this a current diagnosis for this admission?: Yes Plan: EKG showing left bundle branch block which is likely chronic old finding and troponin trend was flat. No evidence of ACS. Physical Exam Vital Signs: Temp Pulse Resp BP Pulse Ox 98.8 F 73 16 152/54 H 98 11/21/19 15:51 11/22/19 11:00 11/22/19 11:00 11/21/19 15:51 11/22/19 11:00 Intake & Output 11/21/19 11/22/19 11/23/19 06:59 06:59 06:59 Intake Total 380 820 Output Total 525 0 Balance -145 820 Weight 69.4 kg 69.4 kg General appearance: PRESENT: no acute distress, cooperative Neck exam: ABSENT: JVD Respiratory exam: PRESENT: clear to auscultation livier Cardiovascular exam: PRESENT: +S1, +S2 Neurological exam: PRESENT: alert, awake, oriented to person, oriented to place, oriented to time, CN II-XII grossly intact - Facial droop noted otherwise rest of cranial nerves intact, motor sensory deficit - Mild left arm weakness Results Laboratory Results: WBC 6.9 10^3/uL (4.0-10.5) 11/19/19 10:00 RBC 5.13 10^6/uL (3.72-5.28) 11/19/19 10:00 Hgb 15.5 g/dL (12.0-15.5) 11/19/19 10:00 Hct 45.2 % (36.0-47.0) 11/19/19 10:00 MCV 88 fl (80-97) 11/19/19 10:00 MCH 30.2 pg (27.0-33.4) 11/19/19 10:00 MCHC 34.3 g/dL (32.0-36.0) 11/19/19 10:00 RDW 16.0 % (11.5-14.0) H 11/19/19 10:00 Plt Count 169 10^3/uL (150-450) 11/19/19 10:00 Lymph % (Auto) 16.5 % (13-45) 11/19/19 10:00 Kinney % (Auto) 10.4 % (3-13) 11/19/19 10:00 Eos % (Auto) 0.8 % (0-6) 11/19/19 10:00 Baso % (Auto) 0.6 % (0-2) 11/19/19 10:00 Absolute Neuts (auto) 4.9 10^3/uL (1.7-8.2) 11/19/19 10:00 Absolute Lymphs (auto) 1.1 10^3/uL (0.5-4.7) 11/19/19 10:00 Absolute Monos (auto) 0.7 10^3/uL (0.1-1.4) 11/19/19 10:00 Absolute Eos (auto) 0.1 10^3/uL (0.0-0.6) 11/19/19 10:00 Absolute Basos (auto) 0.0 10^3/uL (0.0-0.2) 11/19/19 10:00 Seg Neutrophils % 71.7 % (42-78) 11/19/19 10:00 Sodium 132.5 mmol/L (137-145) L 11/20/19 04:43 Potassium 4.6 mmol/L (3.6-5.0) 11/20/19 04:43 Chloride 102 mmol/L (98-107) 11/20/19 04:43 Carbon Dioxide 25 mmol/L (22-30) 11/20/19 04:43 Anion Gap 6 (5-19) 11/20/19 04:43 BUN 15 mg/dL (7-20) 11/20/19 04:43 Creatinine 0.88 mg/dL (0.52-1.25) 11/20/19 04:43 Est GFR ( Amer) > 60 (>60) 11/20/19 04:43 Est GFR (MDRD) Non-Af > 60 (>60) 11/20/19 04:43 Glucose 155 mg/dL (75-110) H 11/20/19 04:43 POC Glucose 199 mg/dL (70-110) H 11/22/19 08:18 Hemoglobin A1c % 9.0 % (4.7-6.0) H 11/20/19 04:43 Lactic Acid 2.1 mmol/L (0.7-2.1) 11/19/19 13:27 Calcium 8.6 mg/dL (8.4-10.2) 11/20/19 04:43 Phosphorus 2.5 mg/dL (2.5-4.5) 11/20/19 04:43 Magnesium 2.0 mg/dL (1.6-2.3) 11/20/19 04:43 Total Bilirubin 0.7 mg/dL (0.2-1.3) 11/19/19 10:00 Direct Bilirubin 0.5 mg/dL (0.0-0.4) H 11/19/19 10:00 Neonat Total Bilirubin Not Reportable 11/19/19 10:00 Neonat Direct Bilirubin Not Reportable 11/19/19 10:00 Neonat Indirect Bili Not Reportable 11/19/19 10:00 AST 45 U/L (14-36) H 11/19/19 10:00 ALT 39 U/L (<35) H 11/19/19 10:00 Alkaline Phosphatase 118 U/L (38-126) 11/19/19 10:00 Creatine Kinase 34 U/L (30-135) 11/20/19 04:43 Troponin I 0.164 ng/mL 11/19/19 16:00 NT-Pro-B Natriuret Pep 3350 pg/mL (<450) H 11/19/19 10:00 Total Protein 7.0 g/dL (6.3-8.2) 11/19/19 10:00 Albumin 3.6 g/dL (3.5-5.0) 11/19/19 10:00 Triglycerides 184 mg/dL (<150) H 11/20/19 04:43 Cholesterol 135.10 mg/dL (0-200) 11/20/19 04:43 LDL Cholesterol Direct 78 mg/dL (<100) 11/20/19 04:43 VLDL Cholesterol 36.8 mg/dL (10-31) H 11/20/19 04:43 HDL Cholesterol 32 mg/dL (>40) L 11/20/19 04:43 Urine Color YELLOW 11/19/19 11:02 Urine Appearance CLEAR 11/19/19 11:02 Urine pH 5.0 (5.0-9.0) 11/19/19 11:02 Ur Specific [place] 1.020 11/19/19 11:02 Urine Protein NEGATIVE mg/dL (NEGATIVE) 11/19/19 11:02 Urine Glucose (UA) >=500 mg/dL (NEGATIVE) H 11/19/19 11:02 Urine Ketones NEGATIVE mg/dL (NEGATIVE) 11/19/19 11:02 Urine Blood NEGATIVE (NEGATIVE) 11/19/19 11:02 Urine Nitrite NEGATIVE (NEGATIVE) 11/19/19 11:02 Urine Bilirubin NEGATIVE (NEGATIVE) 11/19/19 11:02 Urine Urobilinogen NEGATIVE mg/dL (<2.0) 11/19/19 11:02 Ur Leukocyte Esterase TRACE (NEGATIVE) H 11/19/19 11:02 Urine WBC (Auto) 3 /HPF 11/19/19 11:02 Urine RBC (Auto) 2 /HPF 11/19/19 11:02 Squamous Epi Cells Auto <1 /HPF 11/19/19 11:02 Urine Mucus (Auto) RARE /LPF 11/19/19 11:02 Urine Ascorbic Acid 20 (NEGATIVE) H 11/19/19 11:02 11/19/19 11/19/19 10:00 16:00 Troponin I 0.197 0.164 NT-Pro-B Natriuret Pep 3350 H Impressions: Ankle X-Ray 11/19/19 00:00 IMPRESSION: 1. No evidence of acute bony abnormality of either ankle. 2. Moderate bilateral degenerative changes and postsurgical/traumatic changes as above. 2 cancellous screws within the left distal fibula. Carotid Doppler Study 11/19/19 00:00 IMPRESSION: No flow significant stenosis right carotid bifurcation. 50 to 69% diameter narrowing left proximal ICA Head MRI 11/19/19 00:00 IMPRESSION: 1. Recent right occipital lobe infarcts. See description above. 2. Otherwise, small vessel disease and atrophy. Call report tasked to the [facility] team at the time of interpretation. EVIDENCE OF ACUTE STROKE: NO. Head CT 11/19/19 09:29 IMPRESSION: 1. Multifocal areas of hypoattenuation involving the bilateral occipital lobes and left paramedian frontal lobe compatible with age indeterminate infarcts. No priors available for comparison. Recommend MRI for more definitive characterization of chronicity. 2. Additional nonspecific white matter changes, likely sequelae of microangiopathic disease and parenchymal atrophy. EVIDENCE OF ACUTE STROKE: Multifocal areas of hypoattenuation compatible with infarct, age indeterminate. Findings discussed with At 1045 hours on 11/19/2019. Stroke Is this a Stroke Patient?: Yes Stroke Pt being discharged on Anti-thrombolytic therapy?: Yes Stroke Pt being discharged on Anti-coagulation therapy?: No Reason(s) for not prescribing Anti-coagulation therapy:: Not indicated Stroke Pt being discharged on Statins?: Yes Acute Heart Failure - Is this a Heart Failure Patient?: No
== END 2019-11-22 14:47 | DRG 65 ==
LOC: ER 09:11 → EH 13:10 → 3N 15:45
PROVIDERS: ADMIT Internal Medicine; ATTEND Internal Medicine
DX: I63.9 Cerebral infarction, unspecified (principal); E87.2 Acidosis; E11.65 Type 2 diabetes mellitus with hyperglycemia; I16.0 Hypertensive urgency; R53.1 Weakness; R06.2 Wheezing; R79.89 Other specified abnormal findings of blood chemistry; R29.810 Facial weakness; H91.90 Unspecified hearing loss, unspecified ear; I44.7 Left bundle-branch block, unspecified; E78.00 Pure hypercholesterolemia, unspecified; Z79.82 Long term (current) use of aspirin; Z79.4 Long term (current) use of insulin; Z95.3 Presence of xenogenic heart valve; Z88.6 Allergy status to analgesic agent; Z88.3 Allergy status to other anti-infective agents; Z82.49 Family history of ischemic heart disease and other diseases of the circulatory system
CPT/HCPCS: 36415; 70450; 70551; 80048; 80053; 80061; 81001; 82550; 82962; 83036; 83605; 83735; 83880; 84100; 84484; 85025; 87040; 93005; 93010; 93306; 93880; 94640; 96361; 96365; 99291; J1650; J1815; J3490; J7030; J7060; J7620

== ENCOUNTER 2020-01-03 15:56 | Emergency (ER) | payer MEDICARE, OTHER ==
[2020-01-03] MEDS ORDERED: CEFTRIAXONE 1 GM/D5W RTU 1 GM/50 ML RTUPB IV ONE (17:11)
[2020-01-03 17:12] LABS: HEMATOCRIT 43.3 % (36.0-47.0); HEMOGLOBIN 14.9 g/dL (12.0-15.5); MEAN CORPUSCULAR HEMOGLOBIN 30.3 pg (27.0-33.4); MEAN CORPUSCULAR HGB CONC 34.6 g/dL (32.0-36.0); MEAN CORPUSCULAR VOLUME 88 fl (80-97); PLATELET COUNT 318 10^3/uL (150-450); RED BLOOD COUNT 4.93 10^6/uL (3.72-5.28); RED CELL DISTRIBUTION WIDTH 15.6 % (11.5-14.0); WHITE BLOOD COUNT 15.1 10^3/uL (4.0-10.5)
[2020-01-03] MEDS ORDERED: GENTAMICIN SULFATE INJ 80 MG/2 ML VIAL IV ONE (17:12)
--- NOTE | 2020-01-03 17:14 | ER Document Report ---
ED General - General Chief Complaint: Vomiting Stated Complaint: VOMITING Time Seen by Provider: 01/03/20 17:04 Primary Care Provider: CHIDI SIMENTAL MD [Primary Care Provider] - Follow up as needed Mode of Arrival: Medic Information source: Patient Notes: 84-year-old female who is very pleasant and conversive in room and is being cared for by Levar CONTRERAS who advises that the patient was sent here because she had a UTI. I spoke with patient's daughter and she advises she has been receiving IM Phenergan but was told by her senior living doctor that she had a UTI. Urine today was within normal limits. However her liver functions were all elevated including bilirubin of 3.2 her past medical history includes a mini stroke 2 months ago. Patient has a past medical history of CVA hyperglycemia IDDM weakness and UTIs patients meds include; Carvedilol [Coreg 6.25 mg Tablet] 6.25 mg PO Q12 11/19/19 Donepezil HCl 10 mg PO QHS 11/19/19 Empagliflozin [Jardiance] 10 mg PO DAILY 11/19/19 Glimepiride [Amaryl 4 mg Tablet] 4 mg PO QAM 11/19/19 Insulin Aspart Prot/Insuln Asp [Novolog Mix 70-30 Flexpen] 10 - 15 units SUBCUT WSUPPER 11/19/19 Insulin Aspart Prot/Insuln Asp [Novolog Mix 70-30 Flexpen] 20 units SUBCUT WBRKFST 11/19/19 Amlodipine Besylate [Norvasc 10 mg Tablet] 10 mg PO DAILY tablet 11/22/19 Aspirin [Ecotrin 81 mg EC Tablet] 81 mg PO DAILY tabec 11/22/19 Atorvastatin Calcium [Lipitor 40 mg Tablet] 40 mg PO QHS tablet 11/22/19 Chlorthalidone [Hygroton 25 mg Tablet] 25 mg PO DAILY tablet 11/22/19 Sitagliptin Phosphate [Januvia 25 mg Tablet] 25 mg PO DAILY tablet 11/22/19 Stephenie discharge notes 19 Nov 2019 ALL MILTON is a 83 year old female with a history of recent urinary tract infection, aortic valve replacement, diabetes mellitus type 2, who presents to the hospital with complaints of continued generalized weakness as well as fatigue. History obtained from patient's daughter and patient. Patient was recently treated for urinary tract infection 1 week ago at [facility] after presenting with weakness and "groggy feeling". At that time, she was noted to also have elevated blood pressure with systolic in the 190s. This is unusual for patient who had no prior history of hypertension. She was discharged home 2 days later and completed treatment with oral antibiotics. Jardiance was stopped due to concern that he may precipitate UTI. She was discharged on lisinopril. She went to see her primary care provider due to persistence of weakness now affecting ambulation and was told to come to the hospital for further evaluation. Patient denies any focal weaknesses, dysphagia or any focal neurological symptoms and states that she would like to go home to take care of her cat. In the ER, head CT revealed findings concerning for stroke and as such she was referred to hospitalist service for admission. TRAVEL OUTSIDE OF THE [place] IN LAST 30 DAYS: No - HPI Onset: Just prior to arrival Onset/Duration: Sudden, Better Quality of pain: No pain Severity: None Pain Level: Denies Associated symptoms: Nausea Exacerbated by: Denies Relieved by: Denies Similar symptoms previously: No Recently seen / treated by doctor: No - Related Data Allergies/Adverse Reactions: levofloxacin [From Levaquin] Allergy (Severe, Verified 11/19/19 14:16) VOMITING oxycodone HCl [From Percocet] Allergy (Unknown, Verified 11/19/19 14:16) Vomiting oxaprozin [From Daypro] Allergy (Verified 11/19/19 14:16) Past Medical History - General Information source: Patient - Social History Smoking Status: Never Smoker Cigarette use (# per day): No Chew tobacco use (# tins/day): No Smoking Education Provided: No Frequency of alcohol use: None Drug Abuse: None Lives with: Care Home Family History: Hypertension Patient has suicidal ideation: No Patient has homicidal ideation: No - Past Medical History Cardiac Medical History: Reports: Hx Hypercholesterolemia, Hx Hypertension Endocrine Medical History: Reports: Hx Diabetes Mellitus Type 2 Psychiatric Medical History: Denies: Hx Depression Past Surgical History: Reports: Hx Cardiac Surgery - aortic valve replacement and double bypass, Hx Orthopedic Surgery - rods in low back, rods in left ankle,, Other - Bovine aortic valve replacement Review of Systems - Review of Systems Constitutional: See HPI, Weakness EENT: No symptoms reported Cardiovascular: No symptoms reported Respiratory: No symptoms reported Gastrointestinal: No symptoms reported Genitourinary: No symptoms reported Female Genitourinary: No symptoms reported Musculoskeletal: No symptoms reported Skin: No symptoms reported Hematologic/Lymphatic: No symptoms reported Neurological/Psychological: No symptoms reported Physical Exam - Vital signs Vitals: Temp 99.0 F 01/03/20 15:56 Interpretation: Normal - General General appearance: Appears well, Alert - HEENT Head: Normocephalic, Atraumatic Eyes: Normal Pupils: PERRL - Respiratory Respiratory status: No respiratory distress Chest status: Nontender Breath sounds: Normal Chest palpation: Normal - Cardiovascular Rhythm: Regular Heart sounds: Normal auscultation Murmur: No - Abdominal Inspection: Normal Distension: No distension Bowel sounds: Normal Tenderness: Nontender Organomegaly: No organomegaly - Genitourinary External exam: Normal - Back Back: Normal - Extremities General upper extremity: Normal inspection General lower extremity: Normal inspection - Neurological Neuro grossly intact: Yes Cognition: Normal Orientation: AAOx4 [place] Coma Scale Eye Opening: Spontaneous [place] Coma Scale Verbal: Oriented [place] Coma Scale Motor: Obeys Commands [place] Coma Scale Total: 15 Speech: Normal Motor strength normal: LUE, RUE, LLE, RLE Sensory: Normal - Psychological Associated symptoms: Normal affect - Skin Skin Temperature: Warm Skin Moisture: Dry Course - Vital Signs Vital signs: Temp Pulse Resp BP Pulse Ox 99.0 F 23 H 126/48 H 93 01/03/20 17:12 01/03/20 21:00 01/03/20 20:01 01/03/20 21:00 - Laboratory Result Diagrams: 01/03/20 16:51 01/03/20 16:51 Laboratory results interpreted by me: 01/03/20 01/03/20 01/03/20 16:51 16:51 17:45 WBC 15.1 H RDW 15.6 H Seg Neuts % (Manual) 85 H Lymphocytes % (Manual) 4 L Abs Neuts (Manual) 13.6 H Sodium 133.0 L Chloride 95 L BUN 31 H Est GFR ( Amer) 53 L Est GFR (MDRD) Non-Af 44 L Glucose 251 H Total Bilirubin 3.2 H Direct Bilirubin 2.1 H AST 347 H ALT 186 H Alkaline Phosphatase 817 H Urine Glucose (UA) >=500 H Urine Urobilinogen 2.0 H [facility] inc required me to ct abd pelvis - Diagnostic Test Radiology reviewed: Reports reviewed Critical Care Note - Critical Care Note Total time excluding time spent on procedures (mins): 90 Comments: I advised patient of her CT results and her labs; also I spoke with Rebeca daughter about hepatitis/ LFTs elevated Discharge - Discharge Clinical Impression: LFT elevation, Hepatitis Vomiting Qualifiers: Vomiting type: unspecified Vomiting Intractability: unspecified Nausea presence: with nausea Qualified Code(s): R11.2 - Nausea with vomiting, unspecified Condition: Good Disposition: HOME, SELF-CARE Additional Instructions: Follow-up with personal doctor tomorrow also call for hepatitis panel and for Sergio-Cabrales panel. Use Zofran or Phenergan for nausea. You will be sent home with Zofran sublingual for nausea. Avoid taking any more Augmentin for UTI as your urine looks normal at this time. Prescriptions: Ondansetron [Zofran Odt 4 mg Tablet] 1 tab PO Q4H PRN #15 tab.rapdis PRN Reason: For Nausea/Vomiting Referrals: CHIDI SIMENTAL MD [Primary Care Provider] - Follow up as needed
[2020-01-03 17:27] LABS: ABSOLUTE LYMPHOCYTES# (MANUAL) 0.8 10^3/uL (0.5-4.7); ABSOLUTE MONOCYTES # (MANUAL) 0.8 10^3/uL (0.1-1.4); ALBUMIN 4.2 g/dL (3.5-5.0); ALKALINE PHOSPHATASE 817 U/L (38-126); ANION GAP 12 (5-19); ASPARTATE AMINO TRANSFERASE 347 U/L (14-36); BAND NEUTROPHILS % (MANUAL) 5 % (3-5); BASOPHILS % (MANUAL) 0 % (0-2); BILIRUBIN,DIRECT 2.1 mg/dL (0.0-0.4); BILIRUBIN,TOTAL 3.2 mg/dL (0.2-1.3); BLOOD UREA NITROGEN 31 mg/dL (7-20); CALCIUM 9.7 mg/dL (8.4-10.2); CARBON DIOXIDE 26 mmol/L (22-30); CHLORIDE 95 mmol/L (98-107); EOSINOPHILS % (MANUAL) 0 % (0-6); GLUCOSE 251 mg/dL (75-110); LYMPHOCYTES % (MANUAL) 4 % (13-45); MONOCYTES % (MANUAL) 5 % (3-13); POTASSIUM 4.6 mmol/L (3.6-5.0); SEGMENTED NEUTROPHILS % (MAN) 85 % (42-78); TOTAL CELLS COUNTED 100; TOTAL PROTEIN 8.1 g/dL (6.3-8.2)
[2020-01-03 17:28] LABS: ANISOCYTOSIS SLIGHT; POIKILOCYTOSIS SLIGHT
[2020-01-03 17:29] LABS: OVALOCYTES SLIGHT; PLATELET COMMENT ADEQUATE; TOXIC GRANULATION SLIGHT
[2020-01-03 18:55] LABS: APPEARANCE,URINE CLEAR; BILIRUBIN,URINE NEGATIVE (NEGATIVE); COLOR,URINE YELLOW; GLUCOSE, URINE >=500 mg/dL (NEGATIVE); KETONES,URINE NEGATIVE (NEGATIVE); LEUKOCYTE ESTERASE,URINE NEGATIVE (NEGATIVE); NITRITE,URINE NEGATIVE (NEGATIVE); PROTEIN,URINE NEGATIVE (NEGATIVE); URINE SPECIFIC GRAVITY 1.022
--- NOTE | 2020-01-03 20:58 | RADIOLOGY REPORT (SQ) ---
CLINICAL INDICATION: vomiting. . TECHNIQUE: Contrast enhanced spiral axial CT imaging was obtained of the abdomen and pelvis with multiplanar reconstructions. This exam was performed according to our departmental dose-optimization program, which includes automated exposure control, adjustment of the mA and/or kV according to patient size and/or use of iterative reconstruction techniques. COMPARISON: None. CORRELATION: None. FINDINGS: Abdomen: The lung bases demonstrate chronic changes. The heart is enlarged with coronary calcification. Postsurgical change.. No evidence of pleural or pericardial fluid. The liver demonstrate pneumobilia. The gallbladder is surgically absent.. The pancreas is unremarkable. The spleen is unremarkable. The adrenals are unremarkable. The kidneys appear grossly normal without evidence of urolithiasis or hydronephrosis. Significant vascular calcification There is no evidence of free air. No free fluid. No bulky adenopathy. Abdominal aorta is calcified but nonaneurysmal. Pelvis: The bowel is nonobstructed. The bowel is unopacified with oral contrast. Pelvic contents are unremarkable. The appendix is normal. Diverticulosis. No acute diverticulitis. Visualized bones demonstrate age-appropriate osteoporosis. Postsurgical change from lumbar fusion.. IMPRESSION: Artifact from the patient's arm. No acute intra-abdominal process. Diverticulosis. No acute diverticulitis. The cause of the patient's nausea and vomiting is not identified on this examination..
[2020-01-03] MEDS ORDERED: ONDANSETRON ODT 4 MG TAB (6 TAB/ER DISP) PO PRN (21:42)
[2020-01-03 22:41] VITALS: BP 124/56
[2020-01-05 05:37] LABS: HEPATITS B SURFACE ANTIGEN Negative (Negative)
[2020-01-05 11:00] LABS: HEPATITIS C VIRUS ANTIBODY <0.1 s/co ratio (0.0-0.9)
[2020-01-05 15:54] LABS: EPSTEIN BARR NUCLEAR AG IGG AB >600.0 U/mL (0.0-17.9); EPSTEIN BARR VCA IGM AB <36.0 U/mL (0.0-35.9)
== END 2020-01-03 22:45 | disposition home or self-care (01) ==
LOC: ER 15:56
DX: K75.9 Inflammatory liver disease, unspecified (principal); R11.2 Nausea with vomiting, unspecified; R53.1 Weakness; R53.83 Other fatigue; I10 Essential (primary) hypertension; E78.00 Pure hypercholesterolemia, unspecified; Z79.4 Long term (current) use of insulin; Z79.899 Other long term (current) drug therapy; Z79.82 Long term (current) use of aspirin; Z86.73 Personal history of transient ischemic attack (TIA), and cerebral infarction without residual deficits; Z87.440 Personal history of urinary (tract) infections; E11.9 Type 2 diabetes mellitus without complications; Z95.3 Presence of xenogenic heart valve; Z88.1 Allergy status to other antibiotic agents; Z88.6 Allergy status to analgesic agent; Z88.5 Allergy status to narcotic agent; Z88.8 Allergy status to other drugs, medicaments and biological substances; Z95.1 Presence of aortocoronary bypass graft
CPT/HCPCS: 99291; 99292; 96365; 96368; 36415; 87040; 86665 ×2; 86664; 85025; 87077; 80053; 81001; 80074; 87150 ×26; 74176; J1580; J0696; A9270

== ENCOUNTER → 2020-01-09 | Outpatient (CLI) | payer MEDICARE, OTHER ==
[2020-01-09 11:09] LABS: ABSOLUTE BASOPHILS # (AUTO) 0.1 10^3/uL (0.0-0.2); ABSOLUTE EOSINOPHILS # (AUTO) 0.2 10^3/uL (0.0-0.6); ABSOLUTE LYMPHOCYTES (AUTO) 1.7 10^3/uL (0.5-4.7); ABSOLUTE MONOCYTES (AUTO) 0.9 10^3/uL (0.1-1.4); ABSOLUTE NEUT (AUTO) 7.4 10^3/uL (1.7-8.2); BASOPHILS % (AUTO) 0.6 % (0-2); HEMATOCRIT 39.1 % (36.0-47.0); HEMOGLOBIN 13.3 g/dL (12.0-15.5); LYMPHOCYTES % (AUTO) 16.7 % (13-45); MEAN CORPUSCULAR HEMOGLOBIN 30.7 pg (27.0-33.4); MEAN CORPUSCULAR HGB CONC 34.1 g/dL (32.0-36.0); MEAN CORPUSCULAR VOLUME 90 fl (80-97); MONOCYTES % (AUTO) 8.3 % (3-13); PLATELET COUNT 240 10^3/uL (150-450); RED BLOOD COUNT 4.34 10^6/uL (3.72-5.28); RED CELL DISTRIBUTION WIDTH 15.4 % (11.5-14.0); SEGMENTED NEUTROPHILS % (AUTO) 72.4 % (42-78); TOTAL CELLS COUNTED % (AUTO) 100 %; WHITE BLOOD COUNT 10.2 10^3/uL (4.0-10.5)
[2020-01-09 11:30] LABS: ALBUMIN 3.7 g/dL (3.5-5.0); ALKALINE PHOSPHATASE 333 U/L (38-126); ANION GAP 11 (5-19); ASPARTATE AMINO TRANSFERASE 62 U/L (14-36); BILIRUBIN,DIRECT 0.4 mg/dL (0.0-0.4); BILIRUBIN,TOTAL 1.1 mg/dL (0.2-1.3); BLOOD UREA NITROGEN 27 mg/dL (7-20); CALCIUM 8.9 mg/dL (8.4-10.2); CARBON DIOXIDE 26 mmol/L (22-30); CHLORIDE 98 mmol/L (98-107); GLUCOSE 249 mg/dL (75-110); POTASSIUM 4.6 mmol/L (3.6-5.0); TOTAL PROTEIN 7.1 g/dL (6.3-8.2)
== END ==
LOC: OD 10:35
PROVIDERS: ATTEND Internal Medicine
DX: I10 Essential (primary) hypertension (principal); R11.10 Vomiting, unspecified; R79.89 Other specified abnormal findings of blood chemistry; Z79.899 Other long term (current) drug therapy
CPT/HCPCS: 36415; 80053; 85025; 86256

== ENCOUNTER 2020-01-24 08:21 | Inpatient (IN) | payer MEDICARE, OTHER ==
[2020-01-24 08:51] LABS: ABSOLUTE BASOPHILS # (AUTO) 0.1 10^3/uL (0.0-0.2); ABSOLUTE EOSINOPHILS # (AUTO) 0.1 10^3/uL (0.0-0.6); ABSOLUTE LYMPHOCYTES (AUTO) 1.1 10^3/uL (0.5-4.7); ABSOLUTE MONOCYTES (AUTO) 0.6 10^3/uL (0.1-1.4); ABSOLUTE NEUT (AUTO) 11.7 10^3/uL (1.7-8.2); BASOPHILS % (AUTO) 0.8 % (0-2); EOSINOPHILS % (AUTO) 0.7 % (0-6); HEMATOCRIT 38.7 % (36.0-47.0); HEMOGLOBIN 13.1 g/dL (12.0-15.5); LYMPHOCYTES % (AUTO) 7.9 % (13-45); MEAN CORPUSCULAR HEMOGLOBIN 30.5 pg (27.0-33.4); MEAN CORPUSCULAR HGB CONC 33.9 g/dL (32.0-36.0); MEAN CORPUSCULAR VOLUME 90 fl (80-97); MONOCYTES % (AUTO) 4.7 % (3-13); PLATELET COUNT 276 10^3/uL (150-450); SEGMENTED NEUTROPHILS % (AUTO) 85.9 % (42-78); TOTAL CELLS COUNTED % (AUTO) 100 %; WHITE BLOOD COUNT 13.6 10^3/uL (4.0-10.5)
[2020-01-24 09:03] LABS: VENOUS BLOOD BASE EXCESS -3.1 mmol/L; VENOUS BLOOD HCO3 24.1 mmol/L (20-32); VENOUS BLOOD PCO2 52.1 mmHg (35-63); VENOUS BLOOD PH 7.28 (7.30-7.42)
[2020-01-24 09:13] LABS: ALBUMIN 3.6 g/dL (3.5-5.0); ALKALINE PHOSPHATASE 168 U/L (38-126); ANION GAP 7 (5-19); ASPARTATE AMINO TRANSFERASE 27 U/L (14-36); BILIRUBIN,TOTAL 1.1 mg/dL (0.2-1.3); BLOOD UREA NITROGEN 19 mg/dL (7-20); CARBON DIOXIDE 23 mmol/L (22-30); CHLORIDE 101 mmol/L (98-107); GLUCOSE 341 mg/dL (75-110); POTASSIUM 5.2 mmol/L (3.6-5.0); TOTAL PROTEIN 7.3 g/dL (6.3-8.2)
[2020-01-24 09:24] LABS: APPEARANCE,URINE CLEAR; BILIRUBIN,URINE NEGATIVE (NEGATIVE); COLOR,URINE YELLOW; GLUCOSE, URINE >=500 mg/dL (NEGATIVE); KETONES,URINE NEGATIVE (NEGATIVE); LEUKOCYTE ESTERASE,URINE NEGATIVE (NEGATIVE); NITRITE,URINE NEGATIVE (NEGATIVE); PROTEIN,URINE NEGATIVE (NEGATIVE); URINE SPECIFIC GRAVITY 1.014; UROBILINOGEN,URINE NEGATIVE mg/dL (<2.0)
[2020-01-24 10:13] LABS: TROPONIN I 0.053 ng/mL
--- NOTE | 2020-01-24 10:22 | RADIOLOGY REPORT (SQ) ---
EXAM DESCRIPTION: CHEST SINGLE VIEW IMAGES COMPLETED DATE/TIME: 01/24/2020 9:33 am REASON FOR STUDY: Dyspnea COMPARISON: 09/16/2010 NUMBER OF VIEWS: One view. TECHNIQUE: Single frontal radiographic view of the chest acquired. LIMITATIONS: None. FINDINGS: LUNGS AND PLEURA: COPD. Silhouetting of the left heart border. No large effusions. MEDIASTINUM AND HILAR STRUCTURES: Stable. HEART AND VASCULATURE: Cardiac enlargement. Vascular congestion. BONES: No acute findings. HARDWARE: None in the chest. OTHER: No other significant finding. IMPRESSION: Early CHF. There is a background of COPD. TECHNICAL DOCUMENTATION: JOB ID: [id number] 2010 [employer]- All Rights Reserved Reading location - IP/workstation name: [email or web address]
--- NOTE | 2020-01-24 10:25 | ER Document Report ---
Entered by LENORA CONWAY SCRIBE 01/24/20 0944 Acting as scribe for:DEEPA CORDOVA MD ED General - General Chief Complaint: Shortness Of Breath Stated Complaint: DIFFICULTY BREATHING Time Seen by Provider: 01/24/20 08:49 Primary Care Provider: CHIDI SIMENTAL MD [Primary Care Provider] - Follow up as needed Information source: Emergency Med Personnel, [facility] Records Cannot obtain history due to: Other - BiPAP Notes: This 84 year old female patient presents to the emergency department today with complaints of shortness of breath. Patient is on BiPAP and unable to provide much information so history is quite limited. Nursing notes indicate that the patient also complained of weakness and diarrhea since yesterday. When EMS arrived at the patient's residence she was found to be 90% on room air. TRAVEL OUTSIDE OF THE [place] IN LAST 30 DAYS: No - Related Data Allergies/Adverse Reactions: levofloxacin [From Levaquin] Allergy (Severe, Verified 11/19/19 14:16) VOMITING oxycodone HCl [From Percocet] Allergy (Unknown, Verified 11/19/19 14:16) Vomiting oxaprozin [From Daypro] Allergy (Verified 11/19/19 14:16) Past Medical History - General Information source: [facility] Records Cannot obtain history due to: Other - BiPAP - Social History Smoking Status: Former Smoker Cigarette use (# per day): No Frequency of alcohol use: None Drug Abuse: None Lives with: Family Family History: Hypertension Patient has homicidal ideation: No - Past Medical History Cardiac Medical History: Reports: Hx Hypercholesterolemia, Hx Hypertension Endocrine Medical History: Reports: Hx Diabetes Mellitus Type 2 Past Surgical History: Reports: Hx Cardiac Surgery - aortic valve replacement and double bypass, Hx Orthopedic Surgery - rods in low back, rods in left ankle,, Other - Bovine aortic valve replacement Review of Systems - Review of Systems -: Yes ROS unobtainable due to patient's medical condition Respiratory: See HPI, Short of breath Physical Exam - Vital signs Vitals: Resp BP Pulse Ox 30 H 163/104 H 100 01/24/20 08:24 01/24/20 08:24 01/24/20 08:24 - General General appearance: Alert In distress: Mild Notes: The patient does seem to have some dementia. She is presently on BiPAP with a pulse ox reading of 98%. - HEENT Head: Normocephalic, Atraumatic Eyes: Normal Pupils: PERRL - Respiratory Respiratory status: Retractions, Tachypnea Chest status: Tender Breath sounds: Rales, Other - Decreased breath sounds noted in the right chest compared to the left. - Cardiovascular Rhythm: Regular Heart sounds: Normal auscultation Murmur: No - Abdominal Inspection: Obese Bowel sounds: Normal Tenderness: Nontender - Back Back: Normal - Extremities General upper extremity: Normal inspection General lower extremity: Edema - 1+ edema to the right lower extremity, 2+ edema to the left lower extremity. Scars from vein harvesting in the left lower extremity. - Neurological Neuro grossly intact: Yes - Psychological Associated symptoms: Normal affect, Normal mood - Skin Skin Temperature: Warm Skin Moisture: Dry Skin Color: Normal Course - Vital Signs Vital signs: Temp Pulse Resp BP Pulse Ox 97.7 F 82 15 168/58 H 100 01/24/20 08:38 01/24/20 08:38 01/24/20 10:01 01/24/20 10:01 01/24/20 10:01 - Laboratory Result Diagrams: 01/24/20 08:30 01/24/20 08:30 Laboratory results interpreted by me: 01/24/20 01/24/20 01/24/20 08:30 08:30 08:30 WBC 13.6 H RDW 16.0 H Lymph % (Auto) 7.9 L Absolute Neuts (auto) 11.7 H Seg Neutrophils % 85.9 H VBG pH 7.28 L Sodium 131.4 L Potassium 5.2 H Glucose 341 H Alkaline Phosphatase 168 H NT-Pro-B Natriuret Pep Urine Glucose (UA) Urine Ascorbic Acid 01/24/20 01/24/20 08:30 08:50 WBC RDW Lymph % (Auto) Absolute Neuts (auto) Seg Neutrophils % VBG pH Sodium Potassium Glucose Alkaline Phosphatase NT-Pro-B Natriuret Pep 3290 H Urine Glucose (UA) >=500 H Urine Ascorbic Acid 40 H - Diagnostic Test Radiology reviewed: Image reviewed, Reports reviewed - Chest x-ray shows COPD with early CHF. - EKG Interpretation by Nh EKG shows normal: Sinus rhythm, [place], Intervals, QRS Complexes, ST-T Waves Rate: Normal - 86 Rhythm: NSR [place]/QRS: LBBB When compared to previous EKG there are: No significant change - Consults RALF Dunbar Time consulted: 10:35 Consulted provider: will come to ER Critical Care Note - Critical Care Note Total time excluding time spent on procedures (mins): 40 Discharge - Discharge Clinical Impression: Congestive heart failure (CHF) Qualifiers: Heart failure type: unspecified Heart failure chronicity: acute Qualified Code(s): I50.9 - Heart failure, unspecified Condition: Fair Disposition: ADMITTED INPATIENT Admitting Provider: Marcus (Hospitalist) - covering Unit Admitted: I[facility]U Referrals: CHIDI SIMENTAL MD [Primary Care Provider] - Follow up as needed I personally performed the services described in the documentation, reviewed and edited the documentation which was dictated to the scribe in my presence, and it accurately records my words and actions.
[2020-01-24] MEDS ORDERED: FUROSEMIDE INJ/PF 40 MG/4 ML SDV IV ONE (10:30)
[2020-01-24] MEDS ORDERED: NORMAL SALINE 1000 ML 1,000 ML IV PRN (11:30)
[2020-01-24] MEDS ORDERED: LEVALBUTEROL HCL NEB 1.25 MG/3 ML AMPUL NEB PRN (11:30)
[2020-01-24] MEDS ORDERED: MAG HYDROX/AL HYDROX/SIMETH SUSP 30 ML UDCUP PO PRN (11:30)
[2020-01-24] MEDS ORDERED: ACETAMINOPHEN 325 MG TABLET PO PRN (11:30)
[2020-01-24] MEDS ORDERED: DEXTROSE 50%-WATER 25 GM/50 ML DISP.SYRIN IV PRN ×2 (11:42)
[2020-01-24] MEDS ORDERED: DEXTROSE 40% GEL 15 GM TUBE PO PRN ×2 (11:42)
[2020-01-24] MEDS ORDERED: GLUCAGON,HUMAN RECOMB 1 MG INJ IM PRN (11:42)
[2020-01-24 12:03] LABS: INTERNATIONAL RATION (INR) 1.05; PROTHROMBIN TIME 13.7 SEC (11.4-15.4)
[2020-01-24] MEDS: METHYLPREDNISOLONE INJ 40 MG/1 ML SDV IV SCH ×2 (13:52→22:55)
--- NOTE | 2020-01-24 16:43 | PDOC H&P ---
History of Present Illness Admission Date/PCP: 01/24/20 11:28 CHIDI SIMENTAL MD History of Present Illness: ALL MILTON is a 84 year old female who presents to the emergency room with a complaint of diarrhea and weakness.... Patient is a poor historian but says is been going on for several days. According to the nurses notes there is also complained of weakness and diarrhea this may have been from her daughters admission the phone. I have just spoken to the daughter, Madie Garcia and she informed me that this morning at 0 600 the patient had an episode of diarrhea and EMS was called. At that time she was sweaty and clammy and her blood sugar was 234 a couple hours later she was once again feeling weak EMS returned and her blood sugar was still 299. Was brought to the emergency room because of feeling weakness and elevated blood glucose. Other states that the patient has had diarrhea for several days now but not notable events. Tells me in her past medical history she is never had congestive heart failure she is never had COPD she has had cardiac stenting she also has diabetes and hypertension she has had a CVA and back in November of this year she had a case of pneumonia. Letter tells me that the patient is a DNR and does not want her intubated or put on a ventilator. Past Medical History Cardiac Medical History: Reports: Coronary Artery Disease, Hyperlipidema, Hypertension Endocrine Medical History: Reports: Diabetes Mellitus Type 2 Psychiatric Medical History: Denies: Depression Past Surgical History Past Surgical History: Reports: Orthopedic Surgery - rods in low back, rods in left ankle,, Other - Bovine aortic valve replacement Social History Lives with: Family Smoking Status: Former Smoker Frequency of Alcohol Use: None Hx Recreational Drug Use: No - Advance Directive Resuscitation Status: Do Not Resuscitate Family History Family History: Hypertension Parental Family History Reviewed: No Children Family History Reviewed: No Sibling(s) Family History Reviewed.: No Medication/Allergy Home Medications: Carvedilol [Coreg 6.25 mg Tablet] 6.25 mg PO Q12 11/19/19 Donepezil HCl 10 mg PO QHS 11/19/19 Empagliflozin [Jardiance] 10 mg PO DAILY 11/19/19 Glimepiride [Amaryl 4 mg Tablet] 4 mg PO QAM 11/19/19 Insulin Aspart Prot/Insuln Asp [Novolog Mix 70-30 Flexpen] 10 - 15 units SUBCUT WSUPPER 11/19/19 Insulin Aspart Prot/Insuln Asp [Novolog Mix 70-30 Flexpen] 20 units SUBCUT WBRKFST 11/19/19 Amlodipine Besylate [Norvasc 10 mg Tablet] 10 mg PO DAILY tablet 11/22/19 Aspirin [Ecotrin 81 mg EC Tablet] 81 mg PO DAILY tabec 11/22/19 Atorvastatin Calcium [Lipitor 40 mg Tablet] 40 mg PO QHS tablet 11/22/19 Chlorthalidone [Hygroton 25 mg Tablet] 25 mg PO DAILY tablet 11/22/19 Sitagliptin Phosphate [Januvia 25 mg Tablet] 100 mg PO DAILY 01/24/20 Allergies/Adverse Reactions: levofloxacin [From Levaquin] Allergy (Severe, Verified 11/19/19 14:16) VOMITING oxycodone HCl [From Percocet] Allergy (Unknown, Verified 11/19/19 14:16) Vomiting oxaprozin [From Daypro] Allergy (Verified 11/19/19 14:16) Review of Systems Constitutional: PRESENT: chills, weakness Cardiovascular: ABSENT: chest pain, dyspnea on exertion, edema, orthropnea, palpitations Respiratory: ABSENT: cough, hemoptysis Gastrointestinal: PRESENT: diarrhea Neurological: ABSENT: abnormal gait, abnormal speech, confusion, dizziness, focal weakness, syncope Psychiatric: ABSENT: anxiety, depression, homidical ideation, suicidal ideation Physical Exam Vital Signs: Temp Pulse Resp BP Pulse Ox 97.7 F 82 17 168/65 H 100 01/24/20 08:38 01/24/20 08:38 01/24/20 15:31 01/24/20 15:31 01/24/20 15:31 Intake & Output 01/23/20 01/24/20 01/25/20 06:59 06:59 06:59 Weight 65 kg General appearance: PRESENT: no acute distress Respiratory exam: PRESENT: clear to auscultation livier. ABSENT: rales, rhonchi, wheezes Cardiovascular exam: PRESENT: RRR. ABSENT: diastolic murmur, rubs, systolic murmur GI/Abdominal exam: PRESENT: normal bowel sounds, soft. ABSENT: distended, guarding, mass, organolmegaly, rebound, tenderness Neurological exam: PRESENT: other - Dementia Psychiatric exam: PRESENT: flat affect Results Laboratory Results: 01/24/20 08:30 01/24/20 08:30 01/24/20 01/24/20 01/24/20 08:30 08:30 08:30 WBC 13.6 H RBC 4.30 Hgb 13.1 Hct 38.7 MCV 90 MCH 30.5 MCHC 33.9 RDW 16.0 H Plt Count 276 Seg Neutrophils % 85.9 H VBG pH 7.28 L VBG pCO2 52.1 VBG HCO3 24.1 VBG Base Excess -3.1 Sodium 131.4 L Potassium 5.2 H Chloride 101 Carbon Dioxide 23 Anion Gap 7 BUN 19 Creatinine 0.85 Est GFR ( Amer) > 60 Glucose 341 H Lactic Acid Calcium 9.0 Total Bilirubin 1.1 AST 27 Alkaline Phosphatase 168 H Total Protein 7.3 Albumin 3.6 Urine Color Urine Appearance Urine pH Ur Specific [place] Urine Protein Urine Glucose (UA) Urine Ketones Urine Blood Urine Nitrite Ur Leukocyte Esterase Urine WBC (Auto) Urine RBC (Auto) 01/24/20 01/24/20 08:30 08:50 WBC RBC Hgb Hct MCV MCH MCHC RDW Plt Count Seg Neutrophils % VBG pH VBG pCO2 VBG HCO3 VBG Base Excess Sodium Potassium Chloride Carbon Dioxide Anion Gap BUN Creatinine Est GFR ( Amer) Glucose Lactic Acid 1.7 Calcium Total Bilirubin AST Alkaline Phosphatase Total Protein Albumin Urine Color YELLOW Urine Appearance CLEAR Urine pH 5.0 Ur Specific [place] 1.014 Urine Protein NEGATIVE Urine Glucose (UA) >=500 H Urine Ketones NEGATIVE Urine Blood NEGATIVE Urine Nitrite NEGATIVE Ur Leukocyte Esterase NEGATIVE Urine WBC (Auto) 0 Urine RBC (Auto) 1 01/24/20 01/24/20 08:30 08:30 Creatine Kinase 30 Troponin I 0.053 NT-Pro-B Natriuret Pep 3290 H Impressions: Chest X-Ray 01/24/20 08:25 IMPRESSION: Early CHF. There is a background of COPD. Assessment and Plan - Diagnosis (1) CAD (coronary artery disease) Is this a current diagnosis for this admission?: Yes (2) Stented coronary artery Is this a current diagnosis for this admission?: Yes (4) CVA (cerebral vascular accident) Qualifiers: CVA mechanism: unspecified Qualified Code(s): I63.9 - Cerebral infarction, unspecified Is this a current diagnosis for this admission?: Yes (5) Elevated troponin Is this a current diagnosis for this admission?: Yes (6) Type 2 diabetes mellitus with hyperglycemia Qualifiers: Diabetes mellitus intermediate designer insulin use: with fpc use Qualified Code(s): E11.65 - Type 2 diabetes mellitus with hyperglycemia; Z79.4 - prison (current) use of insulin Is this a current diagnosis for this admission?: Yes (7) Weakness Is this a current diagnosis for this admission?: Yes - Plan Summary Summary: I have gotten most of the history from the daughter over the phone. Sounds as though it is mostly just generalized weakness and diarrhea no real history of shortness of breath no history of chest pain. Clearly however improved on BiPAP and was clearly hypoxic at the time she came in. Going to continue diuresing her slightly as her BNP was elevated at 3290 and she did sound slightly wet on auscultation. Resume her home meds as well Daughter wants her to be a DNR patient is a poor historian - Time Time Spent with patient: 35 or more minutes
[2020-01-24] MEDS: INSULIN LISPRO 100 UNIT/ML 3 ML VIAL SUBCUT SCH ×2 (17:57→22:59)
[2020-01-24] MEDS ORDERED: (PENDING PHARMACY ID) (Donepezil Hcl [Donepezil Hcl] 10 MG) PO SCH (22:00)
[2020-01-24] MEDS: FUROSEMIDE INJ/PF 20 MG/2 ML SDV IV SCH (22:50)
[2020-01-24] MEDS: FAMOTIDINE INJ/PF 20 MG/2 ML SDV IV SCH (22:55)
--- NOTE | 2020-01-24 22:57 | EKG REPORT ---
SEVERITY:- ABNORMAL ECG - SINUS RHYTHM LEFT BUNDLE BRANCH BLOCK : Confirmed by: Dwight Liang 24-Jan-2020 22:56:20
[2020-01-25] MEDS: DONEPEZIL HCL 5 MG TABLET PO SCH ×2 (04:58→21:53)
[2020-01-25] MEDS: ATORVASTATIN CALCIUM 40 MG TABLET PO SCH ×2 (05:01→21:53)
[2020-01-25] MEDS: CARVEDILOL 6.25 MG TABLET PO SCH ×3 (05:01→21:53)
[2020-01-25 06:12] LABS: ABSOLUTE LYMPHOCYTES (AUTO) 1.5 10^3/uL (0.5-4.7); ABSOLUTE MONOCYTES (AUTO) 0.8 10^3/uL (0.1-1.4); ABSOLUTE NEUT (AUTO) 8.8 10^3/uL (1.7-8.2); BASOPHILS % (AUTO) 0.4 % (0-2); HEMATOCRIT 36.9 % (36.0-47.0); HEMOGLOBIN 12.6 g/dL (12.0-15.5); LYMPHOCYTES % (AUTO) 13.5 % (13-45); MEAN CORPUSCULAR HEMOGLOBIN 30.1 pg (27.0-33.4); MEAN CORPUSCULAR HGB CONC 34.1 g/dL (32.0-36.0); MEAN CORPUSCULAR VOLUME 88 fl (80-97); MONOCYTES % (AUTO) 7.3 % (3-13); PLATELET COUNT 256 10^3/uL (150-450); RED BLOOD COUNT 4.18 10^6/uL (3.72-5.28); RED CELL DISTRIBUTION WIDTH 15.1 % (11.5-14.0); SEGMENTED NEUTROPHILS % (AUTO) 78.8 % (42-78); TOTAL CELLS COUNTED % (AUTO) 100 %; WHITE BLOOD COUNT 11.2 10^3/uL (4.0-10.5)
[2020-01-25 06:41] LABS: ANION GAP 8 (5-19); BLOOD UREA NITROGEN 25 mg/dL (7-20); CALCIUM 9.5 mg/dL (8.4-10.2); CARBON DIOXIDE 25 mmol/L (22-30); CHLORIDE 99 mmol/L (98-107); GLUCOSE 378 mg/dL (75-110); POTASSIUM 4.5 mmol/L (3.6-5.0)
[2020-01-25] MEDS ORDERED: INSULIN ASPART PROT SUBCUT SCH (08:00)
[2020-01-25] MEDS ORDERED: [UNRECOGNIZED DRUG - OTHER] SUBCUT SCH (08:00)
[2020-01-25] MEDS ORDERED: INSULN ASP SUBCUT SCH (08:00)
[2020-01-25] MEDS: GLIMEPIRIDE 4 MG TABLET PO SCH (08:07)
[2020-01-25] MEDS: HUM INSULIN NPH/REG INSULIN HM 100 UNIT/1 ML 3 ML SUBCUT SCH (08:07)
[2020-01-25] MEDS: INSULIN LISPRO 100 UNIT/ML 3 ML VIAL SUBCUT SCH ×4 (08:09→21:52)
[2020-01-25] MEDS ORDERED: (PENDING PHARMACY ID) (Empagliflozin [Jardiance] 10 MG) PO SCH (10:00)
--- NOTE | 2020-01-25 10:17 | PDOC PROGRESS REPORT ---
Subjective Progress Note for:: 01/25/20 Reason For Visit: SHORTNESS OF BREATH,CHF EXACERBATION,DIABETES, 01/25/2020 Patient admitted with altered mental status, shortness of breath, [place], weakness. She is a poor historian lives at home with her daughter who takes care of her Physical Exam Vital Signs: Temp Pulse Resp BP Pulse Ox 98.1 F 88 20 143/75 H 97 01/25/20 04:04 01/25/20 04:04 01/25/20 04:04 01/25/20 04:04 01/25/20 04:04 Intake & Output 01/24/20 01/25/20 01/26/20 06:59 06:59 06:59 Intake Total 0 Output Total 1125 Balance -1125 Weight 71.4 kg General appearance: PRESENT: no acute distress Respiratory exam: PRESENT: wheezes Cardiovascular exam: PRESENT: systolic murmur Neurological exam: PRESENT: alert, awake, oriented to person, oriented to place, oriented to time, oriented to situation, CN II-XII grossly intact. ABSENT: motor sensory deficit Psychiatric exam: PRESENT: appropriate affect, normal mood. ABSENT: homicidal ideation, suicidal ideation Results Laboratory Results: 01/25/20 05:43 01/25/20 05:43 01/25/20 01/25/20 01/25/20 05:43 05:43 05:43 WBC 11.2 H RBC 4.18 Hgb 12.6 Hct 36.9 MCV 88 MCH 30.1 MCHC 34.1 RDW 15.1 H Plt Count 256 Seg Neutrophils % 78.8 H Sodium 131.7 L Potassium 4.5 Chloride 99 Carbon Dioxide 25 Anion Gap 8 BUN 25 H Creatinine 0.90 Est GFR ( Amer) > 60 Glucose 378 H Calcium 9.5 Magnesium 1.8 01/24/20 01/24/20 01/25/20 08:30 08:30 05:43 Creatine Kinase 30 Troponin I 0.053 NT-Pro-B Natriuret Pep 3290 H 8090 H Impressions: Chest X-Ray 01/24/20 08:25 IMPRESSION: Early CHF. There is a background of COPD. Assessment and Plan - Diagnosis (1) CAD (coronary artery disease) Is this a current diagnosis for this admission?: Yes (2) Stented coronary artery Is this a current diagnosis for this admission?: Yes (4) CVA (cerebral vascular accident) Qualifiers: CVA mechanism: unspecified Qualified Code(s): I63.9 - Cerebral infarction, unspecified Is this a current diagnosis for this admission?: Yes (5) Elevated troponin Is this a current diagnosis for this admission?: Yes (6) Type 2 diabetes mellitus with hyperglycemia Qualifiers: Diabetes mellitus watermaster insulin use: with watermaster use Qualified Code(s): E11.65 - Type 2 diabetes mellitus with hyperglycemia; Z79.4 - intermediate accountant (current) use of insulin Is this a current diagnosis for this admission?: Yes (7) Weakness Is this a current diagnosis for this admission?: Yes - Plan Summary Summary: I have gotten most of the history from the daughter over the phone. Sounds as though it is mostly just generalized weakness and diarrhea no real history of shortness of breath no history of chest pain. Clearly however improved on BiPAP and was clearly hypoxic at the time she came in. Going to continue diuresing her slightly as her BNP was elevated at 3290 and she did sound slightly wet on auscultation. Resume her home meds as well Daughter wants her to be a DNR patient is a poor historian. 01/25/2020 Patient is much more awake and alert this morning she tells me that she lives with her daughter knows her daughter's name she is asking me if she can go home today. Temperature 98.1 pulse 88 blood pressure 143/75 O2 sat 97% on 1 L White count is down slightly to 11,200 BNP is up today from 3290 up to 8090. Glucose levels are running high in the 300s Patient's meds specifically include Lasix 20 IV every 12 hours and Solu-Medrol 40 mg IV every 12 hours She is chest x-ray yesterday showed possible early CHF with COPD. Going to increase her Lasix to 40 every 12 hours x24 hours No clinical indication for antibiotics at this time - Time Time Spent with patient: 25-34 minutes
[2020-01-25] MEDS ORDERED: FUROSEMIDE INJ/PF 20 MG/2 ML SDV IV SCH (10:30)
[2020-01-25] MEDS: DOCUSATE SODIUM 100 MG CAPSULE PO SCH (10:53)
[2020-01-25] MEDS: ASPIRIN 81 MG TABLET, ENT COATED PO SCH (10:54)
[2020-01-25] MEDS: METHYLPREDNISOLONE INJ 40 MG/1 ML SDV IV SCH ×2 (10:57→21:53)
[2020-01-25] MEDS: FAMOTIDINE INJ/PF 20 MG/2 ML SDV IV SCH ×2 (10:58→21:52)
[2020-01-25] MEDS: ENOXAPARIN SODIUM INJ 40 MG/0.4 ML DISP.SYRIN SUBCUT SCH (10:58)
[2020-01-25] MEDS: CHLORTHALIDONE 25 MG TABLET PO SCH (11:37)
[2020-01-25] MEDS: AMLODIPINE BESYLATE 10 MG TABLET PO SCH (11:40)
[2020-01-25] MEDS: FUROSEMIDE INJ/PF 40 MG/4 ML SDV IV SCH ×2 (11:47→21:52)
--- NOTE | 2020-01-25 12:01 | CDI QUERY ---
CDI Query CDI Review: Dear Provider: To better reflect your patients severity of illness, morbidity, and resource utilization Please specify and document in the Progress Notes and Discharge Summary if you are monitoring / treating / evaluating any of the following conditions: Query Clinical indicators Please specify the type and acuity of heart failure: TYPE Systolic Diastolic Combined systolic and diastolic Other heart failure (please specify) Unable to determine ACUITY Acute Chronic Acute on chronic Unable to determine Per Progress Notes: She is chest x-ray yesterday showed possible early CHF with COPD. Going to increase her Lasix to 40 every 12 hours x24 hours BNP BNP is up today from 3290 up to 8090 The terms probable, suspected, likely, possible or still to be ruled out may be used if you are unable to determine the exact nature of a condition. Thank you for your consideration, Clinical Documentation [facility] BUSTER Antony RN, BSN RN Office [phone] Office [phone]
[2020-01-25] MEDS: SITAGLIPTIN PHOSPHATE 25 MG TABLET PO SCH (17:10)
[2020-01-25] MEDS ORDERED: INSULIN LISPRO 100 UNIT/ML 3 ML VIAL SUBCUT ONE (17:45)
[2020-01-25] MEDS: FUROSEMIDE INJ/PF 20 MG/2 ML SDV IV SCH (18:51)
[2020-01-26 05:16] LABS: ABSOLUTE MONOCYTES (AUTO) 0.3 10^3/uL (0.1-1.4); ABSOLUTE NEUT (AUTO) 12.2 10^3/uL (1.7-8.2); BASOPHILS % (AUTO) 0.2 % (0-2); HEMATOCRIT 37.4 % (36.0-47.0); HEMOGLOBIN 12.7 g/dL (12.0-15.5); LYMPHOCYTES % (AUTO) 7.5 % (13-45); MEAN CORPUSCULAR HEMOGLOBIN 30.1 pg (27.0-33.4); MEAN CORPUSCULAR VOLUME 89 fl (80-97); MONOCYTES % (AUTO) 2.5 % (3-13); PLATELET COUNT 253 10^3/uL (150-450); RED BLOOD COUNT 4.23 10^6/uL (3.72-5.28); RED CELL DISTRIBUTION WIDTH 15.5 % (11.5-14.0); SEGMENTED NEUTROPHILS % (AUTO) 89.8 % (42-78); TOTAL CELLS COUNTED % (AUTO) 100 %; WHITE BLOOD COUNT 13.6 10^3/uL (4.0-10.5)
[2020-01-26 05:32] LABS: ANION GAP 8 (5-19); BLOOD UREA NITROGEN 39 mg/dL (7-20); CALCIUM 9.3 mg/dL (8.4-10.2); CARBON DIOXIDE 29 mmol/L (22-30); CHLORIDE 93 mmol/L (98-107); GLUCOSE 369 mg/dL (75-110); POTASSIUM 4.5 mmol/L (3.6-5.0)
[2020-01-26] MEDS: INSULIN LISPRO 100 UNIT/ML 3 ML VIAL SUBCUT SCH (08:15)
[2020-01-26] MEDS: HUM INSULIN NPH/REG INSULIN HM 100 UNIT/1 ML 3 ML SUBCUT SCH (08:16)
[2020-01-26] MEDS: GLIMEPIRIDE 4 MG TABLET PO SCH (08:16)
[2020-01-26] MEDS: CARVEDILOL 6.25 MG TABLET PO SCH (10:00)
[2020-01-26] MEDS: SITAGLIPTIN PHOSPHATE 25 MG TABLET PO SCH (10:01)
[2020-01-26] MEDS: AMLODIPINE BESYLATE 10 MG TABLET PO SCH (10:01)
[2020-01-26] MEDS: FUROSEMIDE INJ/PF 40 MG/4 ML SDV IV SCH (10:01)
[2020-01-26] MEDS: FAMOTIDINE INJ/PF 20 MG/2 ML SDV IV SCH (10:01)
[2020-01-26] MEDS: ASPIRIN 81 MG TABLET, ENT COATED PO SCH (10:01)
[2020-01-26] MEDS: CHLORTHALIDONE 25 MG TABLET PO SCH (10:01)
[2020-01-26] MEDS: METHYLPREDNISOLONE INJ 40 MG/1 ML SDV IV SCH (10:01)
[2020-01-26] MEDS: DOCUSATE SODIUM 100 MG CAPSULE PO SCH (10:02)
[2020-01-26] MEDS: ENOXAPARIN SODIUM INJ 40 MG/0.4 ML DISP.SYRIN SUBCUT SCH (10:02)
[2020-01-26 11:10] VITALS: BP 156/63
--- NOTE | 2020-01-26 18:28 | PDOC DISCHARGE SUMMARY ---
Impression - Admit/DC Date/PCP Admission Date/Primary Care Provider: 01/24/20 11:28 CHIDI SIMENTAL MD Discharge Date: 01/26/20 - Discharge Diagnosis (1) CAD (coronary artery disease) Is this a current diagnosis for this admission?: Yes (2) Stented coronary artery Is this a current diagnosis for this admission?: Yes (4) CVA (cerebral vascular accident) Is this a current diagnosis for this admission?: Yes (5) Elevated troponin Is this a current diagnosis for this admission?: Yes (6) Type 2 diabetes mellitus with hyperglycemia Is this a current diagnosis for this admission?: Yes (7) Weakness Is this a current diagnosis for this admission?: Yes (8) Systolic CHF, acute Is this a current diagnosis for this admission?: Yes - Assessment Summary: I have gotten most of the history from the daughter over the phone. Sounds as though it is mostly just generalized weakness and diarrhea no real history of shortness of breath no history of chest pain. Clearly however improved on BiPAP and was clearly hypoxic at the time she came in. Going to continue diuresing her slightly as her BNP was elevated at 3290 and she did sound slightly wet on auscultation. Resume her home meds as well Daughter wants her to be a DNR patient is a poor historian. 01/25/2020 Patient is much more awake and alert this morning she tells me that she lives with her daughter knows her daughter's name she is asking me if she can go home today. Temperature 98.1 pulse 88 blood pressure 143/75 O2 sat 97% on 1 L White count is down slightly to 11,200 BNP is up today from 3290 up to 8090. Glucose levels are running high in the 300s Patient's meds specifically include Lasix 20 IV every 12 hours and Solu-Medrol 40 mg IV every 12 hours She is chest x-ray yesterday showed possible early CHF with COPD. Going to increase her Lasix to 40 every 12 hours x24 hours No clinical indication for antibiotics at this time 01/26/2020 patient is medically stable for discharge today She was admitted to the hospital on 514 with generalized weakness, with possible history of acute shortness of breath. Patient also had altered mental status, d iabetes with hyperglycemia, elevated troponins. Patient is a poor historian. Patient was hypoxic when she presented to the ER. Patient was treated with Lasix every 12 hours as well as Solu-Medrol. Improved dramatically within 24 hours Patient was discharged home with a Medrol Dosepak and a prescription for Lasix to follow-up with her primary care in 5 to 7 days. She was discharged home to the care of her daughter who is her prep manager. She had no shortness of breath and her mental status had cleared White blood cell count today is 13.6 which is exact same as it was when she was admitted BN P is gone down to 4250. Blood sugars have been elevated and patient is going to control this better when home. This could be because of the steroids that she is on - Additional Information Resuscitation Status: Do Not Resuscitate Discharge Diet: Diabetic Discharge Activity: Balance Activity w/Rest, Bedrest Referrals: CHIDI SIMENTAL MD [Primary Care Provider] - Follow up as needed Prescriptions: Furosemide [Lasix 20 mg Tablet] 20 mg PO QAM #30 tablet Methylprednisolone [Medrol Dosepack (4 mg/Tab) 21 Tab/Dosepak] 4 mg PO ASDIR PRN #21 tab.ds.pk PRN Reason: Home Medications: Carvedilol [Coreg 6.25 mg Tablet] 6.25 mg PO Q12 11/19/19 Donepezil HCl 10 mg PO QHS 11/19/19 Empagliflozin [Jardiance] 10 mg PO DAILY 11/19/19 Glimepiride [Amaryl 4 mg Tablet] 4 mg PO QAM 11/19/19 Insulin Aspart Prot/Insuln Asp [Novolog Mix 70-30 Flexpen] 10 - 15 units SUBCUT WSUPPER 11/19/19 Insulin Aspart Prot/Insuln Asp [Novolog Mix 70-30 Flexpen] 20 units SUBCUT WBRKFST 11/19/19 Amlodipine Besylate [Norvasc 10 mg Tablet] 10 mg PO DAILY tablet 11/22/19 Aspirin [Ecotrin 81 mg EC Tablet] 81 mg PO DAILY tabec 11/22/19 Atorvastatin Calcium [Lipitor 40 mg Tablet] 40 mg PO QHS tablet 11/22/19 Chlorthalidone [Hygroton 25 mg Tablet] 25 mg PO DAILY tablet 11/22/19 Sitagliptin Phosphate [Januvia 25 mg Tablet] 100 mg PO DAILY 01/24/20 Acetaminophen [Tylenol 325 mg Tablet] 650 mg PO Q4HP PRN tablet 01/26/20 Aspirin [Ecotrin 81 mg EC Tablet] 81 mg PO DAILY tabec 01/26/20 Docusate Sodium [Colace 100 mg Capsule] 100 mg PO DAILY capsule 01/26/20 Furosemide [Lasix 20 mg Tablet] 20 mg PO QAM #30 tablet 01/26/20 Mag Hydrox/Al Hydrox/Simeth [Maalox Plus Susp 30 Udcup] 30 ml PO Q6HP PRN udc 01/26/20 Methylprednisolone [Medrol Dosepack (4 mg/Tab) 21 Tab/Dosepak] 4 mg PO ASDIR PRN #21 tab.ds.pk 01/26/20 History of Present Illiness History of Present Illness: ALL MILTON is a 84 year old female who presents to the emergency room with a complaint of diarrhea and weakness.... Patient is a poor historian but says is been going on for several days. According to the nurses notes there is also complained of weakness and diarrhea this may have been from her daughters ad mission the phone. I have just spoken to the daughter, Madie Garcia and she informed me that this morning at 0 600 the patient had an episode of diarrhea and EMS was called. At that time she was sweaty and clammy and her blood sugar was 234 a couple hours later she was once again feeling weak EMS returned and her blood sugar was still 299. Was brought to the emergency room because of feeling weakness and elevated blood glucose. Other states that the patient has had diarrhea for several days now but not notable events. Tells me in her past medical history she is never had congestive heart failure she is never had COPD she has had cardiac stenting she also has diabetes and hypertension she has had a CVA and back in November of this year she had a case of pneumonia. Letter tells me that the patient is a DNR and does not want her intubated or put on a ventilator. Physical Exam Vital Signs: Temp Pulse Resp BP Pulse Ox 98.0 F 79 18 156/63 H 97 01/26/20 11:09 01/26/20 11:09 01/26/20 11:09 01/26/20 11:01/26/20 11:09 Intake & Output 01/25/20 01/26/20 01/27/20 06:59 06:59 06:59 Intake Total 0 1500 Output Total 1125 2400 Balance -0690 -278 Weight 71.4 kg 71.6 kg Results Laboratory Results: WBC 13.6 10^3/uL (4.0-10.5) H 01/26/20 04:31 RBC 4.23 10^6/uL (3.72-5.28) 01/26/20 04:31 Hgb 12.7 g/dL (12.0-15.5) 01/26/20 04:31 Hct 37.4 % (36.0-47.0) 01/26/20 04:31 MCV 89 fl (80-97) 01/26/20 04:31 MCH 30.1 pg (27.0-33.4) 01/26/20 04:31 MCHC 34.0 g/dL (32.0-36.0) 01/26/20 04:31 RDW 15.5 % (11.5-14.0) H 01/26/20 04:31 Plt Count 253 10^3/uL (150-450) 01/26/20 04:31 Lymph % (Auto) 7.5 % (13-45) L 01/26/20 04:31 Baldwin % (Auto) 2.5 % (3-13) L 01/26/20 04:31 Eos % (Auto) 0.0 % (0-6) 01/26/20 04:31 Baso % (Auto) 0.2 % (0-2) 01/26/20 04:31 Absolute Neuts (auto) 12.2 10^3/uL (1.7-8.2) H 01/26/20 04:31 Absolute Lymphs (auto) 1.0 10^3/uL (0.5-4.7) 01/26/20 04:31 Absolute Monos (auto) 0.3 10^3/uL (0.1-1.4) 01/26/20 04:31 Absolute Eos (auto) 0.0 10^3/uL (0.0-0.6) 01/26/20 04:31 Absolute Basos (auto) 0.0 10^3/uL (0.0-0.2) 01/26/20 04:31 Seg Neutrophils % 89.8 % (42-78) H 01/26/20 04:31 PT 13.7 SEC (11.4-15.4) 01/24/20 08:03 INR 1.05 01/24/20 08:03 APTT 28.2 SEC (23.5-35.8) 01/25/20 05:43 VBG pH 7.28 (7.30-7.42) L 01/24/20 08:30 VBG pCO2 52.1 mmHg (35-63) 01/24/20 08:30 VBG HCO3 24.1 mmol/L (20-32) 01/24/20 08:30 VBG Base Excess -3.1 mmol/L 01/24/20 08:30 Sodium 129.9 mmol/L (137-145) L 01/26/20 04:25 Potassium 4.5 mmol/L (3.6-5.0) 01/26/20 04:25 Chloride 93 mmol/L (98-107) L 01/26/20 04:25 Carbon Dioxide 29 mmol/L (22-30) 01/26/20 04:25 Anion Gap 8 (5-19) 01/26/20 04:25 BUN 39 mg/dL (7-20) H 01/26/20 04:25 Creatinine 1.09 mg/dL (0.52-1.25) 01/26/20 04:25 Est GFR ( Amer) 58 (>60) L 01/26/20 04:25 Est GFR (MDRD) Non-Af 48 (>60) L 01/26/20 04:25 Glucose 369 mg/dL (75-110) H 01/26/20 04:25 POC Glucose 373 mg/dL (70-110) H 01/26/20 05:16 Lactic Acid 1.7 mmol/L (0.7-2.1) 01/24/20 08:30 Calcium 9.3 mg/dL (8.4-10.2) 01/26/20 04:25 Magnesium 1.8 mg/dL (1.6-2.3) 01/25/20 05:43 Total Bilirubin 1.1 mg/dL (0.2-1.3) 01/24/20 08:30 Direct Bilirubin 0.0 mg/dL (0.0-0.4) 01/24/20 08:30 Neonat Total Bilirubin Not Reportable 01/24/20 08:30 Neonat Direct Bilirubin Not Reportable 01/24/20 08:30 Neonat Indirect Bili Not Reportable 01/24/20 08:30 AST 27 U/L (14-36) 01/24/20 08:30 ALT 18 U/L (<35) 01/24/20 08:30 Alkaline Phosphatase 168 U/L (38-126) H 01/24/20 08:30 Creatine Kinase 30 U/L (30-135) 01/24/20 08:30 Troponin I 0.053 ng/mL 01/24/20 08:30 NT-Pro-B Natriuret Pep 4250 pg/mL (<450) H 01/26/20 04:31 Total Protein 7.3 g/dL (6.3-8.2) 01/24/20 08:30 Albumin 3.6 g/dL (3.5-5.0) 01/24/20 08:30 Urine Color YELLOW 01/24/20 08:50 Urine Appearance CLEAR 01/24/20 08:50 Urine pH 5.0 (5.0-9.0) 01/24/20 08:50 Ur Specific Godfrey 1.014 01/24/20 08:50 Urine Protein NEGATIVE mg/dL (NEGATIVE) 01/24/20 08:50 Urine Glucose (UA) >=500 mg/dL (NEGATIVE) H 01/24/20 08:50 Urine Ketones NEGATIVE mg/dL (NEGATIVE) 01/24/20 08:50 Urine Blood NEGATIVE (NEGATIVE) 01/24/20 08:50 Urine Nitrite NEGATIVE (NEGATIVE) 01/24/20 08:50 Urine Bilirubin NEGATIVE (NEGATIVE) 01/24/20 08:50 Urine Urobilinogen NEGATIVE mg/dL (<2.0) 01/24/20 08:50 Ur Leukocyte Esterase NEGATIVE (NEGATIVE) 01/24/20 08:50 Urine WBC (Auto) 0 /HPF 01/24/20 08:50 Urine RBC (Auto) 1 /HPF 01/24/20 08:50 U Hyaline Cast (Auto) 4 /LPF 01/24/20 08:50 Urine Mucus (Auto) RARE /LPF 01/24/20 08:50 Urine Ascorbic Acid 40 (NEGATIVE) H 01/24/20 08:50 SARS-CoV-2 (PCR) NEGATIVE (NEGATIVE) 01/24/20 13:16 01/24/20 01/25/20 01/26/20 08:30 05:43 04:31 Troponin I 0.053 NT-Pro-B Natriuret Pep 3290 H 8090 H 4250 H Impressions: Chest X-Ray 01/24/20 08:25 IMPRESSION: Early CHF. There is a background of COPD. Stroke Is this a Stroke Patient?: No Acute Heart Failure - Is this a Heart Failure Patient?: Yes Documentation of LVEF assessment?: No, Document reason - Can be done as an outpatient LVEF < 40%?: No- if no continue to question #3 3. Anticoagulant therapy for permanect/persistent/paraoxysmal Afib or Aflutter: Yes Follow-up Appointment scheduled within 7 days?: Yes
== END 2020-01-26 12:52 | disposition home health service (06) | DRG 291 ==
LOC: ER 08:21 → EH 11:28 → 3W 16:25
PROVIDERS: ADMIT Hospitalist; ATTEND Physician Assistant
PROC: 5A09457 Assistance with Respiratory Ventilation, 24-96 Consecutive Hours, Continuous Positive Airway Pressure (ICD-10-PCS; principal; 2020-01-24)
DX: I11.0 Hypertensive heart disease with heart failure (principal); I50.21 Acute systolic (congestive) heart failure; I69.951 Hemiplegia and hemiparesis following unspecified cerebrovascular disease affecting right dominant side; I25.10 Atherosclerotic heart disease of native coronary artery without angina pectoris; Z95.5 Presence of coronary angioplasty implant and graft; E11.65 Type 2 diabetes mellitus with hyperglycemia; J44.9 Chronic obstructive pulmonary disease, unspecified; E78.5 Hyperlipidemia, unspecified; I44.7 Left bundle-branch block, unspecified; Z66 Do not resuscitate; Z79.4 Long term (current) use of insulin; Z79.899 Other long term (current) drug therapy; Z79.82 Long term (current) use of aspirin; Z95.2 Presence of prosthetic heart valve; Z87.891 Personal history of nicotine dependence; Z88.6 Allergy status to analgesic agent; Z88.3 Allergy status to other anti-infective agents; Z88.8 Allergy status to other drugs, medicaments and biological substances
CPT/HCPCS: 36415; 71045; 80048; 80053; 81001; 82550; 82803; 82962; 83605; 83735; 83880; 84484; 85025; 85610; 85730; 87635; 93005; 93010; 94660; 96374; 99291; J1650; J1815; J1940; J2920; J3490; J7030; S0028

== ENCOUNTER → 2020-02-08 | Outpatient (CLI) | payer MEDICARE, OTHER ==
--- NOTE | 2020-02-08 14:43 | RADIOLOGY REPORT (SQ) ---
EXAM DESCRIPTION: CHEST PA/LATERAL IMAGES COMPLETED DATE/TIME: 02/08/2020 1:38 pm REASON FOR STUDY: FOLLOW UP CHF COMPARISON: 01/24/2020 EXAM PARAMETERS: NUMBER OF VIEWS: two views TECHNIQUE: Digital Frontal and Lateral radiographic views of the chest acquired. RADIATION DOSE: NA LIMITATIONS: none FINDINGS: LUNGS AND PLEURA: No opacities, masses or pneumothorax. No pleural effusion. MEDIASTINUM AND HILAR STRUCTURES: No masses or contour abnormalities. HEART AND VASCULAR STRUCTURES: Heart size is borderline. There is no pulmonary edema. BONES: No acute findings. HARDWARE: Sternotomy wires. Graft marker. OTHER: No other significant finding. IMPRESSION: Borderline heart size without pulmonary edema. Overall improvement compared to the ammy ier study. TECHNICAL DOCUMENTATION: JOB ID: [id number] 2010 [employer]- All Rights Reserved Reading location - IP/workstation name: [email or web address]
== END ==
LOC: OD 13:02
PROVIDERS: ATTEND Internal Medicine
DX: I50.22 Chronic systolic (congestive) heart failure (principal)
CPT/HCPCS: 71046